=== PATIENT | male | born 1965 | race Caucasian/White ===

== ENCOUNTER 2021-10-16 10:22 | Emergency (ER) | payer OTHER, SELFPAY ==
[2021-10-16] VITALS (16 sets, daily range): BP systolic 121–156; BP diastolic 70–87; PULSE 60–78; RESP 12–24; TEMP 36.3; O2SAT 93–98
--- NOTE | 2021-10-16 10:31 | ECG_ITS ---
Measurements Intervals [place] Rate: 71 P: 57 AL: 165 QRS: 46 QRSD: 101 T: 30 QT: 409 QTc: 447 Interpretive Statements SINUS RHYTHM NORMAL ECG Electronically Signed On 10-16-2021 11:54:36 CDT by Jacob Godfrey D.O.
--- NOTE | 2021-10-16 10:50 | PC.NURSE ---
Pt states that he went to the bathroom but forgot to pee in the cup
[2021-10-16 10:56] LABS: Basophils Percent Auto 0.4 % (0.2-1.2); Eosinophils Absolute Auto 0.1 K/mm3 (0-0.3); Eosinophils Percent Auto 0.9 % (0-4.4); Hematocrit 46.8 % (42.0-52.0); Immature Granulocyte Absolute 0.03 K/mm3 (0.00-0.031); Immature Granulocyte Percent A 0.3 % (0-0.5); Lymphocytes Absolute Auto 2.29 K/mm3 (0.9-3.2); Lymphocytes Percent Auto 24.4 % (18.3-44.2); Mean Corpuscular HGB Conc 34.2 g/dl (32-36); Mean Corpuscular Hemoglobin 32.6 pg (26-34); Mean Corpuscular Volume 95.3 fl (80-100); Mean Platelet Volume 11.1 fl (7.4-10.4); Monocytes Absolute Auto 0.5 K/mm3 (0.1-0.6); Monocytes Percent Auto 5.4 % (2.6-8.5); Neutrophils Absolute Auto 6.4 K/mm3 (1.3-6.7); Neutrophils Percent Auto 68.6 % (45.5-73.1); Platelet Count Result 205 k/mm3 (150-375); Red Blood Count 4.91 M/mm3 (4.6-6.20); Red Cell Distribution Width 13.2 % (11.5-14.5); White Blood Count 9.4 K/mm3 (4.5-10.0)
[2021-10-16 11:06] LABS: Alanine Aminotransferase 21 U/L (4-50); Albumin Level 4.8 g/dL (3.5-5.1); Alkaline Phosphatase 100 U/L (38-126); Anion Gap 9 mmol/L (8-16); Aspartate Amino Transferase 27 U/L (17-59); Bilirubin,Total 0.9 mg/dL (0.2-1.3); Blood Urea Nitrogen 13 mg/dL (9-20); Calcium 9.2 mg/dL (8.4-10.2); Carbon Dioxide 27 mmol/L (22-30); Chloride 104 mmol/L (98-107); Estimated CRCL calculation 112 ml/min; Estimated Glomerular Filt Rate > 60; Glucose 148 mg/dL (65-110); Magnesium 2.1 mg/dL (1.6-2.3); Potassium 3.7 mmol/L (3.4-5.0); Sodium 140 mmol/L (137-145)
--- NOTE | 2021-10-16 11:30 | ED.GENADULT ---
HPI - General Adult General Chief complaint: Recheck/Abnormal Lab/Rx Stated complaint: blood pressure problems Time Seen by Provider: 10/16/21 10:31 Source: patient and family Mode of arrival: ambulatory Limitations: no limitations History of Present Illness HPI narrative: 56-year-old male presenting to the emergency department for evaluation of not feeling well this morning. Patient states he does have history of high blood pressure and has had elevated blood pressures as of recently. Patient states he recently had his amlodipine/benazepril increased from 10 to 10/30. Patient did contact his primary care physician about his elevated blood pressures are running in the systolic 170s. Patient was told since Tuesday to increase this again so patient has been taking . Patient states this morning when he woke up he had an anxious feeling. Patient denies any chest pain or shortness of with this. Patient did check his blood pressure and was found to be in the systolic 170s. Patient did take his blood pressure medication. Patient states that this uneasy/anxious feeling lasted approximately 1 to 2 hours. Patient states he is at his baseline now and denies any complaints. Patient denies any prior history of carotid artery disease. Patient does have a stress test a few years ago. Patient denies any prior history of Angiocath. Related Data Home Medications Medication Instructions Recorded Confirmed amlodipine-benazepril 2 cap DAILY 10/16/21 atorvastatin 40 mg DAILY 10/16/21 Allergies Allergy/AdvReac Type Severity Reaction Status Date / Time No Known Allergies Allergy Verified 10/16/21 10:36 Review of Systems Review of Systems: CONSTITUTIONAL: See HPI EYES: Denies visual changes, redness, or discharge. ENT: Denies rhinorrhea, congestion, sore throat, or otalgia. CARDIOVASCULAR: See HPI RESPIRATORY: Denies cough or dyspnea. GASTROINTESTINAL: Denies abdominal pain, nausea, vomiting, or diarrhea. GENITOURINARY: Denies dysuria or hematuria. SKIN: Denies rash or itching. MUSCULOSKELETAL: Denies back pain, joint pain, or myalgia. NEUROLOGIC: Denies headache, numbness, or weakness. [facility] Family History Family History (Updated 01/09/16 @ 23:21 by DOCTOR UNKNOWN) Mother Patient's mother is in good health Family history of pulmonary embolism Father Patient's father is in good health Social History Social History Smoking status: Heavy tobacco smoker Alcohol intake: never Exam Narrative: APPEARANCE: Well appearing, no pain, no distress, well-nourished. HEAD: normocephalic, atraumatic. EYES: PERRLA/EOMI, conjunctivae clear. NOSE: Normal no drainage THROAT: Pharynx clear, no exudate. NECK: Supple. No adenopathy, no masses. RESPIRATORY: Airway patent, respirations nonlabored. Clear to auscultation bilaterally, no rales, rhonchi, wheezing. CARDIOVASCULAR: Regular rate and rhythm without murmurs rubs or gallops. ABDOMINAL: Soft, nontender, nondistended, normal bowel sounds MUSCULOSKELETAL: Moves all extremities. Strength/ROM intact, No edema, No calf tenderness. NEURO: Alert. Cranial nerves II through XII intact. Good gait. Good coordination SKIN: Warm, dry. Normal Color Course Course Emergency Course: Patient's serial troponins were negative. Patient did feel well with ambulation. Patient's blood pressure is range between 160s and 130 systolic. When patient ambulated he had no worsening symptoms. Patient was encouraged to have close follow-up with his primary care physician. Vital Signs Vital signs: Vital Signs Temperature 97.3 F L 10/16/21 10:23 Pulse Rate 78 10/16/21 10:23 Respiratory Rate 16 10/16/21 10:23 Blood Pressure 156/76 H 10/16/21 10:23 Pulse Oximetry 98 10/16/21 10:23 Temperature 97.3 F L 10/16/21 10:23 Pulse Rate 62 10/16/21 15:27 Respiratory Rate 18 10/16/21 15:27 Blood Pressure 145/73 H 10/16/21 15:27 Pulse Oximetry 97 10/16/21 15:27 [facility]
[2021-10-16 11:32] LABS: Appearance Urine Clear (Clear); Bilirubin Urine Negative (Negative); Blood Urine Negative (Negative); Color Urine Yellow (Yellow); Glucose Urine UA Negative (Negative); Ketones Urine Negative (Negative); Leukocyte Esterase Ur Negative LEU/UL (Negative); Nitrate Urine Negative (Negative); Protein Urine Negative (Negative); Urobilinogen Urine 0.2 mg/dL (<2.0); pH Urine 6.5 (5.0-9.0)
[2021-10-16 11:35] LABS: RBC Urine 0-2 /hpf (0-2); Squamous Epithelial Cell Urine Rare /hpf (Few); WBC Urine 0-3 /hpf
[2021-10-16 11:41] LABS: Add Urine Microscopic? YES
[2021-10-16 12:07] LABS: Thyroid Stimulating Hormone Reflex 0.633 uIU/mL (0.465-4.68)
--- NOTE | 2021-10-16 12:13 | PC.NURSE ---
Talked to daniel in lab to add trop
[2021-10-16 12:33] LABS: Troponin I < 0.012 ng/mL (0.000-0.034)
[2021-10-16 14:40] LABS: Troponin I < 0.012 ng/mL (0.000-0.034)
== END 2021-10-16 15:28 | disposition home or self-care (01) ==
PROVIDERS: Emergency Provider Emergency Medicine; PCP Physician Assistant
DX: I10 Essential (primary) hypertension (principal); F17.200 Nicotine dependence, unspecified, uncomplicated
CPT/HCPCS: 36415; 80053; 81001; 83735; 84443; 84484; 85025; 93005; 99284

== ENCOUNTER 2024-04-19 09:09 | Emergency (ER) | payer OTHER, SELFPAY ==
[2024-04-19] VITALS (9 sets, daily range): BP systolic 117–136; BP diastolic 68–81; PULSE 66–74; RESP 12–50; TEMP 36.3; O2SAT 91–98
--- NOTE | 2024-04-19 09:51 | ECG_ITS ---
Test Date: 2024-04-19 10:17:29 Measurements Intervals [place] Rate: 63 P: 50 MT: 162 QRS: 31 QRSD: 99 T: 44 QT: 424 QTc: 437 Interpretive Statements SINUS RHYTHM NORMAL ECG No previous ECG available for comparison Electronically Signed On 04-19-2024 10:36:12 [employer] by Jacob Godfrey D.O.
[2024-04-19 10:37] LABS: Basophils Percent Auto 0.2 % (0.2-1.2); Eosinophils Absolute Auto 0.1 K/mm3 (0-0.3); Eosinophils Percent Auto 1.1 % (0-4.4); Hematocrit 47.5 % (42.0-52.0); Hemoglobin 16.4 g/dL (14.0-18.0); Immature Granulocyte Absolute 0.02 K/mm3 (0.00-0.031); Immature Granulocyte Percent A 0.2 % (0-0.5); Lymphocytes Percent Auto 20.3 % (18.3-44.2); Mean Corpuscular HGB Conc 34.5 g/dl (32-36); Mean Corpuscular Hemoglobin 31.8 pg (26-34); Mean Corpuscular Volume 92.2 fl (80-100); Mean Platelet Volume 10.9 fl (7.4-10.4); Monocytes Absolute Auto 0.4 K/mm3 (0.1-0.6); Monocytes Percent Auto 5.1 % (2.6-8.5); Neutrophils Absolute Auto 6.1 K/mm3 (1.3-6.7); Neutrophils Percent Auto 73.1 % (45.5-73.1); Platelet Count Result 154 k/mm3 (150-375); Red Blood Count 5.15 M/mm3 (4.6-6.20); Red Cell Distribution Width 13.1 % (11.5-14.5); White Blood Count 8.4 K/mm3 (4.5-10.0)
[2024-04-19 10:47] LABS: Anion Gap 9 mmol/L (4-12); Blood Urea Nitrogen 16 mg/dL (9-20); Calcium 9.3 mg/dL (8.4-10.2); Carbon Dioxide 25 mmol/L (22-30); Chloride 104 mmol/L (98-107); Estimated CRCL calculation 100 ml/min; Estimated Glomerular Filt Rate > 60; Glucose 97 mg/dL (65-110); Potassium 3.9 mmol/L (3.4-5.0); Sodium 138 mmol/L (137-145)
--- NOTE | 2024-04-19 17:39 | ED.RECABL ---
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 No chest pain, shortness of breath, however sometimes when he thinks about certain tasks he gets a sensation of pressure to his head he Related Data Home Medications Medication Instructions Recorded Confirmed amlodipine 5 mg-benazepril 20 mg 2 cap DAILY 10/16/21 capsule atorvastatin 40 mg tablet 40 mg DAILY 10/16/21 Allergies Allergy/AdvReac Type Severity Reaction Status Date / Time No Known Allergies Allergy Verified 04/19/24 09:20 Review of Systems Review of Systems: All systems reviewed & are unremarkable except as noted in HPI and below [facility] Family History Family History (Updated 01/09/16 @ 23:21 by DOCTOR UNKNOWN) Mother Patient's mother is in good health Family history of pulmonary embolism Father Patient's father is in good health Social History Social History Smoking status: Heavy tobacco smoker Alcohol intake: never Exam Narrative: EXAMINATION OF ORGAN SYSTEMS/BODY AREAS: Constitutional: Vital signs per nursing GENERAL:[No acute distress, non-toxic appearing.] HEAD: Normal with no signs of head trauma. EYES: EOMI, conjunctiva normal ENT: Hearing grossly intact LUNGS: Nonlabored breathing. HEART: [Regular rate and rhythm] ABD: [Soft], [nontender to palpation] EXT: Normal range of motion SKIN: [No rashes or lesions.] NEURO: [Alert and oriented x 3. No gross focal sensory or strength deficits.] PSYCH: Normal affect Course Vital Signs Vital signs: Vital Signs Respiratory Rate 50 H 04/19/24 09:15 Blood Pressure 136/77 04/19/24 09:15 Pulse Oximetry 94 04/19/24 09:15 Temperature 97.4 F L 04/19/24 09:16 Pulse Rate 66 04/19/24 09:46 Respiratory Rate 15 04/19/24 10:01 Blood Pressure 123/68 04/19/24 10:15 Pulse Oximetry 91 04/19/24 10:15 Oxygen Delivery Room Air 04/19/24 09:16 MDM - Recheck/Abnormal Lab/Rx MDM Narrative Medical decision making narrative: Patient presents here unsure he is feeling stressed out or if his blood pressure is high, his blood pressure has been completely normal here, he he is very well-appearing, denies any symptoms currently, basic workup obtained including EKG are unremarkable. independent interpretation EKG by myself, shows EKG rate 63, normal [place], QRS, QTC, axis, no ST elevations or depressions no acute ischemia or arrhythmia Patient denies any thoughts about wanting to hurt himself or anyone else. I will given follow-up to mental health resources and several p.r.n. doses of Ativan for when he has the episodes again, I have encouraged him to always return to the ER for any further issues and he is agreeable to this. Lab Data 04/19/24 10:32 04/19/24 10:32 Labs: Lab Results 04/19/24 Range/Units 10:32 WBC 8.4 (4.5-10.0) K/mm3 RBC 5.15 (4.6-6.20) M/mm3 Hgb 16.4 (14.0-18.0) g/dL Hct 47.5 (42.0-52.0) % MCV 92.2 (80-100) fl MCH 31.8 (26-34) pg MCHC 34.5 (32-36) g/dl RDW 13.1 (11.5-14.5) % Plt Count 154 (150-375) k/mm3 MPV 10.9 H (7.4-10.4) fl Immature Gran % (Auto) 0.2 (0-0.5) % Neut % (Auto) 73.1 (45.5-73.1) % Lymph % (Auto) 20.3 (18.3-44.2) % [place] % (Auto) 5.1 (2.6-8.5) % Eos % (Auto) 1.1 (0-4.4) % Baso % (Auto) 0.2 (0.2-1.2) % Lymph # (Auto) 1.70 (0.9-3.2) K/mm3 [place] # (Auto) 0.4 (0.1-0.6) K/mm3 Eos # (Auto) 0.1 (0-0.3) K/mm3 Baso # (Auto) 0.0 (0.0-0.1) K/mm3 Abs Immat Gran (auto) 0.02 (0.00-0.031) K/mm3 Absolute Neuts (auto) 6.1 (1.3-6.7) K/mm3 Absolute Nucleated RBC 0.000 (0.0-0.012) K/mm3 Nucleated RBC % 0.0 (0.0-0.2) % Sodium 138 (137-145) mmol/L Potassium 3.9 (3.4-5.0) mmol/L Chloride 104 (98-107) mmol/L Carbon Dioxide 25 (22-30) mmol/L Anion Gap 9 (4-12) mmol/L BUN 16 (9-20) mg/dL Creatinine 0.90 (0.7-1.3) mg/dL Estim Creat Clear Calc 100 ml/min Estimated GFR > 60 (59 - ) Glucose 97 (65-110) mg/dL Calcium 9.3 (8.4-10.2) mg/dL Discharge Plan Discharge Clinical Impression: Stress Patient Disposition: Home, Self-Care Condition: Stable Instructions: Stress (ED), Normal Exam (ED) Additional Instructions: Please follow up with your doctor; you can always return for any further issues, especially if you have thoughts about hurting yourself or anyone else, or free start having any chest pain or anything else concerning. Prescriptions: New lorazepam [Ativan] 0.5 mg tablet 0.5 mg PO BID PRN (Reason: anxiety) Qty: 7 0RF No Action atorvastatin 40 mg tablet 40 mg DAILY amlodipine-benazepril 5-20 mg capsule 2 cap DAILY Follow-up/Referrals: 2 Minutes [Outside] - 2 Days UNKNOWN,DOCTOR [Primary Care Provider] -
== END 2024-04-19 11:08 | disposition home or self-care (01) ==
PROVIDERS: Emergency Provider Emergency Medicine
DX: F43.9 Reaction to severe stress, unspecified (principal); I10 Essential (primary) hypertension; Z79.899 Other long term (current) drug therapy
CPT/HCPCS: 36415; 80048; 85025; 93005; 99283

== ENCOUNTER 2024-10-09 08:41 | Emergency (ER) | payer OTHER, SELFPAY ==
[2024-10-09] VITALS (8 sets, daily range): BP systolic 107–133; BP diastolic 67–77; PULSE 64–85; RESP 16–19; TEMP 36.5; O2SAT 93–97
--- NOTE | ~2024-10-09 | XR_ITS ---
XR chest 2V Ordering provider: Rashaun Landa History: 59 years Male with . dizziness . Comparison: July 30, 2014 FINDINGS: MEDIASTINUM: The cardiac silhouette is slightly enlarged. LUNGS: No infiltrates, effusions or pneumothorax. OTHER: No free air under the diaphragm. IMPRESSION: No acute cardiopulmonary pathology. Reviewed, dictated and finalized at location A.
--- NOTE | ~2024-10-09 | CT_ITS ---
EXAMINATION: CTA chest PE protocol DATE: 10/09/2024 10:55 INDICATION: Lightheadedness, hypoxia and elevated d-dimer. TECHNIQUE: Computed tomography (CT) pulmonary angiogram of the chest was performed with 100 mL Omnipa que-350 intravenous contrast. Additional 3D reconstructions utilizing coronal maximum intensity proje ction (MIP) were performed. Automated exposure control and iterative reconstruction technique were em ployed. The dose-length product was 738.34 mGy-cm. COMPARISON: None FINDINGS: No pulmonary embolism. Mild emphysema. Mild dependent atelectasis in the bilateral upper and lower lo bes. No pneumonia, pulmonary edema or pleural effusion. Heart size is normal. Atherosclerotic coronar y artery calcium location. No pericardial effusion. Thoracic aorta is normal in caliber with no disse ction. No pathologically enlarged thoracic lymphadenopathy. Small sliding-type hiatal hernia. Visuali zed upper abdomen is otherwise unremarkable. Mild thoracic spondylosis. IMPRESSION: 1. No pulmonary embolism or other acute cardiopulmonary disease. 2. Mild emphysema. 3. Small sliding-type hiatal hernia. Reviewed, dictated and finalized at location B.
--- NOTE | 2024-10-09 08:46 | ECG_ITS ---
Test Date: 2024-10-09 08:48:23 Measurements Intervals [place] Rate: 74 P: 65 [place]: 170 QRS: 52 QRSD: 90 T: 50 QT: 396 QTc: 440 Interpretive Statements SINUS RHYTHM POSSIBLE LEFT ATRIAL ENLARGEMENT BORDERLINE ECG Compared to ECG 04/19/2024 10:17:29 No significant changes Electronically Signed On 10-09-2024 08:50:00 CDT by Jacob Godfrey D.O.
[2024-10-09 08:58] LABS: Basophils Percent Auto 0.3 % (0.2-1.2); Eosinophils Absolute Auto 0.2 K/mm3 (0-0.3); Eosinophils Percent Auto 1.7 % (0-4.4); Hematocrit 49.1 % (42.0-52.0); Hemoglobin 16.4 g/dL (14.0-18.0); Immature Granulocyte Absolute 0.03 K/mm3 (0.00-0.031); Immature Granulocyte Percent A 0.3 % (0-0.5); Lymphocytes Absolute Auto 2.53 K/mm3 (0.9-3.2); Lymphocytes Percent Auto 24.8 % (18.3-44.2); Mean Corpuscular HGB Conc 33.4 g/dl (32-36); Mean Corpuscular Volume 95.9 fl (80-100); Mean Platelet Volume 10.7 fl (7.4-10.4); Monocytes Absolute Auto 0.5 K/mm3 (0.1-0.6); Monocytes Percent Auto 5.1 % (2.6-8.5); Neutrophils Absolute Auto 6.9 K/mm3 (1.3-6.7); Neutrophils Percent Auto 67.8 % (45.5-73.1); Platelet Count Result 173 k/mm3 (150-375); Red Blood Count 5.12 M/mm3 (4.6-6.20); White Blood Count 10.2 K/mm3 (4.5-10.0)
--- OUTSIDE RECORDS SUMMARY | 2024-10-09 09:03 | XMS_ITS | Encounter Summary ---
Author Organization [facility] Address [address] [place] [address] Care Team Providers Care Basket Hand Braider Name Role Phone SeverianoFracisco nugentsalma DUPREE Primary Care Provider UnaRomulo Glvoer MD Unavailable [phone] Shilpa Savage NP Primary Care Provider UnavaNatasha Coleman Primary Care Provider [phone] New Referring, Provider Primary Care Provider Un available Natasha Arreola Primary Care Provider [phone] Dianna Blackman NP Primary Care Provider [phone] Kaden Lord NP Primary Care Provide r Tian Taveras MD Primary Care Provider [phone] Encounter Details Date Type Department Care Team (Late st Contact Info) Description 08/26/2017 Abstract [facility] at [address] [address] Nga Cruz MA Social History Tobacco Use Types Packs/Day Years Used Date Smoking Tobacco: Every Day Cigarettes 1 36.3 Started: 1988 Alcohol Use Standard Drinks/Week Comments No 0 (1 standard drink = 0.6 oz pur e alcohol) Sex and Gender Information Value Date Recorded Sex Assigned at Male 08/06/2024 3:05 PM CLIENT SUCCESS SPECIALIST Legal Sex Male 3:29 PM CLIENT SUCCESS SPECIALIST Gender Identity Male 08/06/2024 3:05 PM CLIENT SUCCESS SPECIALIST Sexual Orientation Straight 08/06/2024 3: 05 PM CLIENT SUCCESS SPECIALIST 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 Not on file documented as of this encounter Plan of Treatment Not on file documented as of this encounter Procedures Procedure Name Priority Date/Time Associated Diagnosis Comments CBC (OUTSIDE LAB) Routine 06/09/2017 PROSTATE SPECIFIC ANTIGEN,TOTAL Routine 06/09/2017 COMPREHENSIVE METABOLIC PANEL Routine 06/09/2017 LIPID PANEL Routine 06/09/2017 THYROID STIM HORMONE TSH Routine 06/09/2017 documented in this encounter Results * PROSTATE SPECIFIC ANTIGEN,TOTAL (06/09/2017) PSA 0.220 06/09/2017 us Doc [facility]ORATORY Final Result * THYROID STIM HORMONE, TSH (06/09/2017) TSH 1.21 06/09/2017 us Doc [facility]AT[facility] Final Result * LIPID PANEL (06/09/2017) Pathologist [facility] CHOLESTEROL 236 HDL 38 TRIGLYCERIDES 140 LDL (CALCULATED) 170 06/09/2017 us Doc [facility] Final Result * COMPREHENSIVE METABOLIC PANEL (06/09/2017) SODIUM S/P/B 138 POTASSIUM S/P/B 4.8 CO2 27 CHLORIDE S/P/B 101 GLUCOSE 91 mg/dL CALCIUM S/P/B 9.4 BUN 15 CREATININE S/P/B 1.03 0.7 - 1.3 EGFR NON-AFR. AMER. >60 <=90 ALKALINE PHOSPHATASE S/P/B 97 ALT 41 AST 37 BILIRUBIN TOTAL S/P/B 0.5 ALBUMIN S/P/B 4.4 3.5 - 5.0 TOTAL PROTEIN S/P/B 7.5 06/09/2017 us Doc [facility] Abstract LABORATORY Final Result * CBC (OUTSIDE LAB) (06/09/2017) WBC 9.0 HGB 15.9 HCT 48.2 PLT 205 06/09/2017 us Doc [facility] Abstract LAB-OUTSIDE/ABSTRACTED Final Result documented in this encounter Visit Diagnoses Not on filedocumented in this encounter Care Teams Basket Hand Braider Relationship Specialty Start Date End Date Moriah العلي APNP PCP - General ACCOUNT CONTACT ASSOCIATE 08/11/17 06/28/18 Shilpa Savage NP [address] [address] PCP - General Nurse Practitioner Family 06/29/18 07/25/19 [place] [address] [place] [address] PCP - General PHYSICIAN LOSS PREVENTION DETECTIVE 07/26/19 09/30/19 [facility] Provider [address] [place] [address] PCP - General UNKNOWN PHYSICIAN SPECIALTY 10/01/19 10/29/19 [place] [address] [place] [address] PCP - General PHYSICIAN LOSS PREVENTION DETECTIVE 10/30/19 12/08/22 [place] [address] [facility], [address] [address] PCP - General Nurse Practitioner Family 12/09/22 08/22/23 Kaden Lord, [place] [address] [address], [address] [place] [address] PCP - General NURSE PRACTITIONER ADULT HEALTH 08/23/23 01/03/24 [place] [id number] [address] PCP - General INTERNAL MEDICINE 01/04/24 Romulo Wynn MD [facility]. [address] [address] [place] [employer] CARDIOVASCULAR DISEASE 08/19/17 documented as of this encounter
--- OUTSIDE RECORDS SUMMARY | 2024-10-09 09:03 | XMS_ITS | Encounter Summary ---
Author Organization [facility] Address [address] [place] [address] Care Team Providers Care Housing Specialist Name Role Phone Romulo Wynn MD Unavailable [phone] Dianna Blackman NP Primary Care Provider [phone] Kaden Lord NP Primary Care Provide r Tian Taveras MD Primary Care Provider [phone] Encounter Details Date Type Department Care Team (Late st Contact Info) Description 08/22/2023 [employer] Message Enc [facility] Family & Internal Medicine [address] [address] [facility] Provider appointment Social History Tobacco Use Types Packs/Day Years Used Date Smoking Tobacco: Every Day Cigarettes 0.5 36.3 Started: 1988 Smokeless Tobacco: Never Comments:advised to stop Alcohol Use Standard Drinks/Week Comments No 0 (1 standard drink = 0.6 oz pur e alcohol) PHQ-2 Answer Date Recorded Patient Health Questionnaire-2 Score 0 08/22/2023 Sex and Gender Information Value Date Recorded Sex Assigned at Male 08/06/2024 3:05 PM LEARNING AND DEVELOPMENT SPECIALIST Legal Sex Male 3:29 PM LEARNING AND DEVELOPMENT SPECIALIST Gender Identity Male 08/06/2024 3:05 PM LEARNING AND DEVELOPMENT SPECIALIST Sexual Orientation Straight 08/06/2024 3: 05 PM LEARNING AND DEVELOPMENT SPECIALIST 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 Question Answer Date of Assessment Author Status Little interest or pleasure in doing things Not at all 08/22/2023 11:48 AM CDT Bre Elizabeth MA Acti ve Feeling down, depressed, or hopeless Not at all 08/22/2023 11:48 AM CDT Bre Elizabeth MA Active Patient Health Questionnaire-2 Score 0 08/22/2023 11:48 AM CDT Bre Elizabeth M A Active * If you checked off any problems on this questionnaire so far, Question Answer Date of Assessment Author Status How difficult have these problems made it for you to do your work, take care of things at home, or get along with other people? Not difficult at all 08/22/2023 11:48 AM CDT Bre Elizabeth MA Active documented as of this encounter Plan of Treatment Not on file documented as of this encounter Visit Diagnoses Not on filedocumented in this encounter Additional Health Concerns Assessment Noted Time PHQ-9 Depression Total Score: 0 03/31/20 22 3:17 PM CDT documented as of this encounter Care Teams Housing Specialist Relationship Specialty Start [place] [address] [address], [address] [place] [address] PCP - General Nurse Practitioner Family 12/09/22 08/22/23 [place] [address] [address], [address] [place] [address] PCP - General NURSE PRACTITIONER ADULT HEALTH 08/23/23 01/03/24 [place] [address] [address] [place] [address] PCP - General INTERNAL MEDICINE 01/04/24 Romulo Wynn MD [address] [address] [employer] Processing Technician CARDIOVASCULAR DISEASE 08/19/17 documented as of this encounter
--- OUTSIDE RECORDS SUMMARY | 2024-10-09 09:03 | XMS_ITS | Clinical Summary ---
Author Organization [facility] Address [facility] [place] [address] Care Team Providers Care Automobile Parker Name Role Phone Romulo Wynn MD Unavailable [phone] Tian Taveras MD Primary Care Provider [phone] Allergies No known active allergies Medications amLODIPine-benaze pril (LOTREL) 5-20 MG capsuleIndication s:Primary hypertension Take 2 capsules by mouth daily. 180 capsule 1 08/06/19 25 Active atorvastatin (LIPITOR) 40 MG tabletIndications :Other hyperlipidemia Take 1 tablet (40 mg total) by mouth daily. 90 tablet 08/06/19 25 Active hydroCHLOROthiazi de (HYDRODIURIL) 25 MG tabletIndications :Primary hypertension Take 1 tablet (25 mg total) by mouth every morning. 30 tablet 1 08/06/19 25 Active hydrOXYzine (ATARAX) 25 MG tabletIndications :Anxiety Take 1 tablet (25 mg total) by mouth daily as needed. 90 tablet 1 08/06/19 25 Active gabapentin (NEURONTIN) 300 MG capsuleIndication s:Foot pain, right Take 1 capsule (300 mg total) by mouth nightly at bedtime. 30 capsule 08/06/19 25 Active DULoxetine (CYMBALTA) 30 MG capsuleIndication s:Anxiety associated with depression Take 2 capsules (60 mg total) by mouth daily. 120 capsule 10/06/19 25 Active LORazepam (ATIVAN) 0.5 MG tabletIndications :Anxiety associated with depression Take 1 tablet (0.5 mg total) by mouth daily as needed for Anxiety. 15 tablet 10/06/19 25 Active DULoxetine (CYMBALTA) 30 MG capsuleIndication s:Anxiety associated with depression Take 1 capsule (30 mg total) by mouth daily. 90 capsule 08/06/19 25 025 Discontinued(R eorder) DULoxetine (CYMBALTA) 30 MG capsuleIndication s:Anxiety associated with depression Take 2 capsules (60 mg total) by mouth daily. 90 capsule 10/06/19 25 025 Discontinued Active Problems Problem Noted Date Diagnosed Date Anxiety 08/06/2024 Tobacco use 08/06/2024 CRIS on CPAP 07/31/2024 Prediabetes 01/20/2023 Anxiety associated with depression 01/12/2023 Acute gout involving toe of left foot, unspecifi ed cause 09/23/2021 Bruit of left carotid artery 10/01/2020 Labral tear of shoulder, degenerative, right Diverticulosis 05/03/2019 Adenomatous polyp of descending colon 05/03/2019 Chronic right shoulder pain 04/23/2019 Impingement syndrome of shoulder, right 04/23/20 Osteoarthritis of glenohumeral joint, right 04/13 Nicotine dependence 05/31/2017 BMI 38.0-38.9,adult 05/31/2017 Essential hypertension Hyperlipidemia Resolved Problems Problem Noted Date Diagnosed Date Resolved Date Change in bowel habit 05/20/20222022 Overview (05/20/2022): Added automatically from request for surgery [id number] Diarrhea, unspecified type 05/20/2022 0 01/12/2023 Overview (05/20/2022): Added automatically from request for surgery [id number] Left ear pain 09/23/2021 01/12/2023 Encounter for screening for malignant neoplasm of colon 03/26/2019 01/12/2023 Overview (03/26/2019): Added automatically from request for surgery [id number] BMI 40.0-44.9, adult 12/06/2018 023 Acute recurrent maxillary sinusitis 12/06/2018 01/12/2023 Screening for colon cancer 04/04/2018 0 06/30/2018 Neck pain, acute 11/15/2017 06/30/2018 Snoring 08/09/2017 06/30/2018 Acute bronchitis, unspecified organism 05/31/2017 06/30/2018 Chest discomfort 06/30/2018 Encounters Date Type Department Care Team Description 10/03/2024 Telephone [facility] [address] [place] [address] Tian Taveras MD Medication Request 08/06/2024 3:00 PM VICE PRESIDENT CLIENT SERVICES Office Visit [facility] [address] [place] [address] Tian Taveras MD Hypertension (3 month follow up hypertension / medication) 08/06/2024 Travel from Last 3 Months Immunizations Immunization Administration Dates Next Due FLUCELVAX (ccIIV3, TRIVALENT, 0.5mL) 05/01/2024 Flucelvax 2 YRS+ (Multi-Dose Vial) 03/24/2019 Fluzone 6 Months+ Quad (0.5 mL Prefilled Syringe) 03/15/2020 Influenza (Generic) 03/15/2020,04/04/2018 Influenza Adult (Generic) 03/24/2022,06/2020,04/04/2018,2015,04/18/2015 PFIZER COVID-19 (ORIGINAL FORMULATION, PURPLE CAP) mRNA, LNP-S, PF, 30 MCG/0.3 ML DOSE 04/20/2021,09/27/2020,09/06/2020 Pneumococcal (Prevnar 20) 01/12/2023 Tdap (Adacel) 01/12/2023 Family History Medical History Relation Comments Hypertension Brother 1 WPW Brother 1 Hypertension Brother 2 No Known Problems Daughter Transient ischemic attack Father No Known Problems Maternal Aunt No Known Problems Maternal Grandfather No Known Problems Maternal Grandmother No Known Problems Maternal Uncle Alzheimer's Disease Mother No Known Problems Other No Known Problems Paternal Aunt No Known Problems Paternal Grandfather No Known Problems Paternal Grandmother No Known Problems Paternal Uncle No Known Problems Sister 1 No Known Problems Sister 2 No Known Problems Son Relation Status Comments Brother 1 Alive Brother 2 Alive Daughter Father Alive Maternal Aunt Maternal Grandfather (Age 78) Maternal Grandmother (Age 72) Maternal Uncle Mother Alive Other Paternal Aunt Paternal Grandfather (Age 72) Paternal Grandmother (Age 78) Paternal Uncle Sister 1 Alive Sister 2 Alive Son Social History Tobacco Use Types Packs/Day Years Used Date Smoking Tobacco: Every Day Cigarettes 0.5 36.3 Started: 1988 Smokeless Tobacco: Never Tobacco Cessation:Ready to Q uit: No; Counseling Given: Yes Comments:advised to stop Alcohol Use Standard Drinks/Week Comments No 0 (1 standard drink = 0.6 oz pur e alcohol) PHQ-2 Answer Date Recorded Patient Health Questionnaire-2 Score 0 08/06/2024 Sex and Gender Information Value Date Recorded Sex Assigned at Male 08/06/2024 3:05 PM VICE PRESIDENT CLIENT SERVICES Legal Sex Male 3:29 PM VICE PRESIDENT CLIENT SERVICES Gender Identity Male 08/06/2024 3:05 PM VICE PRESIDENT CLIENT SERVICES Sexual Orientation Straight 08/06/2024 3: 05 PM VICE PRESIDENT CLIENT SERVICES 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 Not on file Last Filed Vital Signs Vital Sign Reading Time Taken Comments Blood Pressure 132/82 08/06/2024 2:59 PM VICE PRESIDENT CLIENT SERVICES Pulse 74 08/06/2024 2:59 PM VICE PRESIDENT CLIENT SERVICES Temperature 36.6 C (97.9 F) 08/06/2024 2:59 PM VICE PRESIDENT CLIENT SERVICES Respiratory Rate 16 08/06/2024 2:59 PM VICE PRESIDENT CLIENT SERVICES Oxygen Saturation 97% 08/06/2024 2:59 PM VICE PRESIDENT CLIENT SERVICES Inhaled Oxygen Concentration - - Weight 117 kg (258 lb) 08/06/2024 2:59 PM VICE PRESIDENT CLIENT SERVICES Height 180.3 cm (5' 11 ) 08/06/2024 2:59 PM VICE PRESIDENT CLIENT SERVICES Body Mass Index 35.98 08/06/2024 2:59 PM VICE PRESIDENT CLIENT SERVICES Plan of Treatment Health Maintenance Due Date Last Done Comments Zoster Vaccines (1 of 2) 2015 Annual Physical 01/13/2024 01/12/2023 Colorectal Cancer Screening Colonoscopy (10 Years) 08/06/2032 08/06/2022, 04/18/2019 DTaP, Tdap and Td Vaccines (2 - Td or Tdap) 01/12/2033 01/12/2023 Hepatitis C 01/12/2053 Postponed from 1983 (Patient Refused) Pneumococcal Vaccine: 50+ Years Completed 01/12/2023 COVID-19 Vaccine Completed 05/01/2024, 05/2022, 04/20/2021, Additional history exists PHQ-2 (Physician [place]) Completed 08/06/2024 Meningococcal B Vaccine Aged Out No l onger eligible based on patient's age to complete this topic Meningococcal Vaccine Aged Out No cr eugenio eligible based on patient's age to complete this topic RSV Immunizations Under 20 Months Aged Out No longer eligible based on patient's age to complete [place] [address] [employer] Care Teams Automobile Parker Relationship Specialty [place] [address] [address] PCP - General INTERNAL MEDICINE 01/04/24 Romulo Wynn MD [facility]. [address] [place] [address] [place] Bulk Sugar Handler CARDIOVASCULAR DISEASE 08/19/17
--- OUTSIDE RECORDS SUMMARY | 2024-10-09 09:03 | XMS_ITS | Clinical Summary ---
Author Organization [facility] Address [address] [address] Care Team Providers Care Family Program Specialist Name Role Phone Unavailable Primary Care Provider Unavailabl e Source Comments [facility],non-owned Affiliates and Associated Physician Practices is amultiple site organization consisting of ambulatory clinics and hospital sitesin [place], [place], [place] and [place]. This disclosure is being madepursuant to the Care Everywhere program and may not contain all information available regarding this patient. Last updated 18.[facility] Allergies No known active allergies Medications * Be aware that medications may not be up to date on this document. Alwaysverify current medications with the patient. AMLODIPINE BESYLATE PO Active albuterol HFA (PROVENTIL;CELE FIORELLA;PROAIR) 108 (90 BASE) MCG/ACT inhalerIndicatio ns:Acute bronchitis, unspecified organism Inhale 2 puffs by mouth every 6 hours as needed 1 Inhaler 04/20/2017 Active Active Problems No known active problems Social History Tobacco Use Types Packs/Day Years Used Date Smoking Tobacco: Every Day Cigarettes 1 30 Smokeless Tobacco: Never Sex and Gender Information Value Date Recorded Sex Assigned at Not on file Legal Sex Male 11:43 AM INVESTIGATOR FRAUD Gender Identity Not on file Sexual Orientation Not on file Last Filed Vital Signs Vital Sign Reading Time Taken Comments Blood Pressure 136/88 04/20/2017 2:09 PM INVESTIGATOR FRAUD Pulse 85 04/20/2017 2:09 PM INVESTIGATOR FRAUD Temperature 36.9 C (98.4 F) 04/20/2017 2:09 PM INVESTIGATOR FRAUD Respiratory Rate 16 04/20/2017 2:09 PM INVESTIGATOR FRAUD Oxygen Saturation 97% 04/20/2017 2:09 PM INVESTIGATOR FRAUD Inhaled Oxygen Concentration - - Weight 131.5 kg (290 lb) 04/20/2017 2:09 PM INVESTIGATOR FRAUD Height 182.9 cm (6') 04/20/2017 2:09 PM INVESTIGATOR FRAUD Body Mass Index 39.33 04/20/2017 2:09 PM INVESTIGATOR FRAUD Plan of Treatment Health Maintenance Due Date Last Done Comments COLOGUARD (AGES 45-75) - COL ON CA SCREENING 1965 COLON MONITORING 1965 COLONOSCOPY - COLON CA SCREENING 1965 CT COLONOGRAPHY - COLON CA SCREENING 1965 Colorectal Cancer Screening 1965 FIT - COLON CA SCREENING 1965 FLEX SIG - COLON CA SCREENING 1965 LIPID TESTING 1965 HIV SCREENING 1980 HEPATITIS C SCREENING 05/26/1983 DTAP/TDAP/TD VACCINES (1 - Tdap) 1984 HEPATITIS B VACCINE (1 of 3 - 19+ 3-dose series) 1984 PNEUMOCOCCAL VACCINE 50+ (1 of 1 - PCV) 2015 ZOSTER VACCINE (1 of 2) 2015 SCREENING FOR DIABETES 04/20/2017 COVID-19 VACCINE (1 - 2023-2 5 season) 2024 DEPRESSION SCREENING 06/13/2024 INFLUENZA VACCINE (Season Ended) 2025 HIB VACCINE Aged Out No longer eligi ble based on patient's age to complete this topic HPV VACCINE Aged Out No longer eligi ble based on patient's age to complete this topic MENINGOCOCCAL (Group B) VACC INE SHARED DECISION-MAKING Aged Out No longer eligibl e based on patient's age to complete this topic MENINGOCOCCAL GROUPS A/C/Y/W VACCINE Aged Out No longer eligible b ased on patient's age to complete this topic Insurance [employer]
[2024-10-09 09:09] LABS: Alanine Aminotransferase 21 U/L (6-50); Albumin Level 4.5 g/dL (3.5-5.1); Alkaline Phosphatase 88 U/L (38-126); Anion Gap 6 mmol/L (4-12); Aspartate Amino Transferase 24 U/L (17-59); Blood Urea Nitrogen 16 mg/dL (9-20); Calcium 9.1 mg/dL (8.4-10.2); Carbon Dioxide 30 mmol/L (22-30); Chloride 101 mmol/L (98-107); Estimated CRCL calculation 92 ml/min; Estimated Glomerular Filt Rate > 60; Glucose 116 mg/dL (65-110); Potassium 3.7 mmol/L (3.4-5.0); Sodium 137 mmol/L (137-145)
--- NOTE | 2024-10-09 09:43 | ED_ITS ---
HPI - Dizziness General Chief Complaint: Dizziness Stated Complaint: dizziness Time Seen by Provider: 10/09/24 09:09 Source: patient Mode of arrival: ambulatory Limitations: no limitations History of Present Illness HPI Narrative: This is a 59 year old male that presents to the ER for lightheadedness. Reports ongoing over the last several weeks. Reports worse when standing. Reports he was recently started on Duloxetine as well as Ativan for anxiety. Denies chest pain, shortness of breath. Related Data Home Medications ?Medication ?Instructions ?Recorded ?Confirmed ?Last Taken ?Type amlodipine 5 mg-benazepril 20 mg 2 cap DAILY 10/16/21 Unknown History capsule atorvastatin 40 mg tablet 40 mg DAILY 10/16/21 Unknown History Allergies Allergy/AdvReac Type Severity Reaction Status Date / Time No Known Allergies Allergy Verified 10/09/24 08:49 Review of Systems 2 Review of Systems: CONSTITUTIONAL: Denies fever EYES: Denies visual changes CARDIOVASCULAR: Denies chest pain, or edema. RESPIRATORY: Denies dyspnea. GASTROINTESTINAL: Denies vomiting NEUROLOGIC: Denies numbness, or weakness. PSYCHIATRIC: Reports anxiety All systems reviewed & are unremarkable except as noted in HPI and below PMFSH Past Medical History Medical History (Updated 10/09/24 @ 10:03 by Becky Rodas PA-C) History of sleep apnea Mixed hyperlipidemia Essential (primary) hypertension Family History Family History (Updated 01/09/16 @ 23:21 by DOCTOR UNKNOWN) Mother Patient's mother is in good health Family history of pulmonary embolism Father Patient's father is in good health Social History Social History Smoking status: Heavy tobacco smoker Alcohol intake: never Exam 2 Narrative: GENERAL: Well-appearing, well-nourished, and in no acute distress. HEAD: Normocephalic, atraumatic. EYES: PERRLA and EOMI. ENT: Nares clear, no rhinorrhea or epistaxis. Mucous membranes moist. Oropharynx without tonsillar hypertrophy exudate or other lesions. Bilateral TMs pearly ortiz non-bulging NECK: Supple. No adenopathy or masses. CHEST: Clear to auscultation. No respiratory distress. No wheezes rales or rhonchi HEART: Regular rate and rhythm. No murmur heard. Normal peripheral pulses. EXTREMITIES: Normal range of motion. No edema. SKIN: Warm, dry, no rash. NEURO: No focal deficits. Alert and oriented x3. CN II-XII grossly intact PSYCH: Normal mood and affect Course Course Emergency Course: Patient updated on his workup and agrees with plan of care Vital Signs Vital signs: Vital Signs Temperature 97.7 F 10/09/24 08:46 Pulse Rate 76 10/09/24 08:46 Respiratory Rate 19 10/09/24 08:46 Blood Pressure 133/70 10/09/24 08:46 Pulse Oximetry 96 10/09/24 08:46 Oxygen Delivery Room Air 10/09/24 08:46 Temperature 97.7 F 10/09/24 08:46 Pulse Rate 70 10/09/24 09:00 Respiratory Rate 17 10/09/24 09:00 Blood Pressure 119/72 10/09/24 09:00 Pulse Oximetry 94 10/09/24 09:00 Oxygen Delivery Room Air 10/09/24 08:46 MDM - Dizziness MDM Narrative Medical decision making narrative: Patient presents to the emergency department for lightheadedness. Ongoing over the last couple of weeks. Does endorse recently being started on duloxetine and Ativan for anxiety. Patient initially orthostatic, hydrated with L of IV fluids. Ambulatory in the ED with a steady gait. CBC and metabolic panel without concerning findings. D-dimer was elevated, CTA of the chest obtained for further evaluation. No acute cardiopulmonary abnormality. EKG without concerning changes. Patient updated on his workup and agrees with plan of care. He is to have further follow-up with primary provider. He was given warnings to return to the ER Differential Diagnosis Differential diagnosis: Likely adverse reaction to drug, benign paroxysmal positional vertigo, orthostatic hypotension and other (PE, electrolyte derangement, dehydration) Lab Data Attestation: I reviewed the patient's lab results. 10/09/24 08:51 10/09/24 08:51 Labs: Lab Results 10/09/24 Range/Units 08:51 WBC 10.2 H (4.5-10.0) K/mm3 RBC 5.12 (4.6-6.20) M/mm3 Hgb 16.4 (14.0-18.0) g/dL Hct 49.1 (42.0-52.0) % MCV 95.9 (80-100) fl MCH 32.0 (26-34) pg MCHC 33.4 (32-36) g/dl RDW 13.0 (11.5-14.5) % Plt Count 173 (150-375) k/mm3 MPV 10.7 H (7.4-10.4) fl Immature Gran % (Auto) 0.3 (0-0.5) % Neut % (Auto) 67.8 (45.5-73.1) % Lymph % (Auto) 24.8 (18.3-44.2) % Lake % (Auto) 5.1 (2.6-8.5) % Eos % (Auto) 1.7 (0-4.4) % Baso % (Auto) 0.3 (0.2-1.2) % Lymph # (Auto) 2.53 (0.9-3.2) K/mm3 Lake # (Auto) 0.5 (0.1-0.6) K/mm3 Eos # (Auto) 0.2 (0-0.3) K/mm3 Baso # (Auto) 0.0 (0.0-0.1) K/mm3 Abs Immat Gran (auto) 0.03 (0.00-0.031) K/mm3 Absolute Neuts (auto) 6.9 H (1.3-6.7) K/mm3 Absolute Nucleated RBC 0.000 (0.0-0.012) K/mm3 Nucleated RBC % 0.0 (0.0-0.2) % D-Dimer 0.87 H (<0.48) ug/mL Sodium 137 (137-145) mmol/L Potassium 3.7 (3.4-5.0) mmol/L Chloride 101 (98-107) mmol/L Carbon Dioxide 30 (22-30) mmol/L Anion Gap 6 (4-12) mmol/L BUN 16 (9-20) mg/dL Creatinine 1.00 (0.7-1.3) mg/dL Estim Creat Clear Calc 92 ml/min Estimated GFR > 60 (59 - ) Glucose 116 H (65-110) mg/dL Calcium 9.1 (8.4-10.2) mg/dL Total Bilirubin 1.0 (0.2-1.3) mg/dL AST 24 (17-59) U/L ALT 21 (6-50) U/L Alkaline Phosphatase 88 (38-126) U/L Total Protein 8.0 (6.3-8.2) g/dL Albumin 4.5 (3.5-5.1) g/dL Imaging Data Radiologist's impression: ITS Impressions Chest X-Ray 10/09/24 09:23 IMPRESSION: No acute cardiopulmonary pathology. ITS Impressions Chest X-Ray 10/09/24 09:23 IMPRESSION: No acute cardiopulmonary pathology. Chest CTA 10/09/24 11:07 IMPRESSION: 1. No pulmonary embolism or other acute cardiopulmonary disease. 2. Mild emphysema. 3. Small sliding-type hiatal hernia. ECG Data EKG #1: ECG completion date: 10/09/24 EKG Interpretation: normal rate, sinus rhythm, no ST changes and normal QT Critical Care Time Critical Care Time Critical Care Time: No Discharge Plan Discharge Clinical Impression: Lightheadedness, Orthostatic hypotension Patient Disposition: Home Condition: Improved Instructions: Lightheadedness (ED) Additional Instructions: Return to the emergency department if you experience fever, chest pain, shortness of breath, abdominal pain with nausea and vomiting, weakness, numbness, you pass out, or any other symptoms that are concerning to you. Rest. Remain well hydrated. Stand slowly from seated position Follow up with your primary care doctor Patient Language: Slovak Prescriptions: No Action atorvastatin 40 mg tablet 40 mg DAILY amlodipine-benazepril 5-20 mg capsule 2 cap DAILY lorazepam [Ativan] 0.5 mg tablet 0.5 mg PO BID PRN (Reason: anxiety) Qty: 7 0RF Follow-up/Referrals: UNKNOWN,DOCTOR [Primary Care Provider] -
[2024-10-09] MEDS: SODIUM CHLORIDE 0.9% IV 1,000 ML 999 ML IV CONT (09:47)
--- OUTSIDE RECORDS SUMMARY | 2024-10-09 10:10 | XMS_ITS | Encounter Summary ---
Author Organization [facility] Address [address] [place] [address] Care Team Providers Care Operator Technician Name Role Phone SeverianoFracisco nugentsalma DUPREE Primary Care Provider UnaRomulo Glover MD Unavailable [phone] Shilpa Savage NP Primary Care Provider UnavaNatasha Coleman Primary Care Provider [phone] New Referring, Provider Primary Care Provider Un available Natasha Arreola Primary Care Provider [phone] Dianna Blackman NP Primary Care Provider [phone] Kaden Lord NP Primary Care Provide r Tian Taveras MD Primary Care Provider [phone] Encounter Details Date Type Department Care Team (Late st Contact Info) Description 08/26/2017 Abstract [facility] at [address] [address] Nga Cruz [place] Social History Tobacco Use Types Packs/Day Years Used Date Smoking Tobacco: Every Day Cigarettes 1 36.3 Started: 1988 Alcohol Use Standard Drinks/Week Comments No 0 (1 standard drink = 0.6 oz pur e alcohol) Sex and Gender Information Value Date Recorded Sex Assigned at Male 08/06/2024 3:05 PM SHIELD CLEANER Legal Sex Male 3:29 PM SHIELD CLEANER Gender Identity Male 08/06/2024 3:05 PM SHIELD CLEANER Sexual Orientation Straight 08/06/2024 3: 05 PM SHIELD CLEANER Occupation Industry Job Start Date Job End [...] Final Result * LIPID PANEL (06/09/2017) Pathologist [facility] CHOLESTEROL 236 HDL 38 TRIGLYCERIDES 140 LDL [...] on filedocumented in this encounter Care Teams Operator Technician Relationship Specialty Start Date End Date Moriah العلي APNP PCP - General GREASE REFINING SUPERVISOR 08/11/17 06/28/18 Shilpa Savage NP [address] [address] PCP - General Nurse Practitioner Family 06/29/18 07/25/19 [place] [address] [place] [address] PCP - General PHYSICIAN TIPPLE TENDER 07/26/19 09/30/19 [facility], Provider [address] [place] [address] PCP - General UNKNOWN PHYSICIAN SPECIALTY 10/01/19 10/29/19 [place] [address] [place] [address] PCP - General PHYSICIAN TIPPLE TENDER 10/30/19 12/08/22 [place] [address] [facility] [address] [address] PCP - General Nurse Practitioner Family 12/09/22 08/22/23 Kaden Lord, [place] [address] [address], [address] [place] [address] PCP - General NURSE PRACTITIONER ADULT HEALTH 08/23/23 01/03/24 [place] [address] [address] PCP - General INTERNAL MEDICINE 01/04/24 Romulo Wynn MD [facility]. [address] [address] [place] [employer] Specialist CARDIOVASCULAR DISEASE 08/19/17 documented as of this encounter
--- OUTSIDE RECORDS SUMMARY | 2024-10-09 10:10 | XMS_ITS | Clinical Summary ---
Author Organization [facility] Address [address] [place] [address] Care Team Providers Care Veneer Trimmer Name Role Phone Unavailable Primary Care Provider Unavailabl e Source Comments [facility],non-owned Affiliates and Associated Physician Practices is amultiple site organization consisting of ambulatory clinics and hospital sitesin [place], [place], [place] and [place]. This disclosure is being madepursuant to the Care Everywhere program and may not contain all information available regarding this patient. Last updated 18.[facility] Allergies No known active allergies Medications * [...] on file Legal Sex Male 11:43 AM COMMUNICATION CLERK Gender Identity Not on file Sexual Orientation Not on file Last Filed Vital Signs Vital Sign Reading Time Taken Comments Blood Pressure 136/88 04/20/2017 2:09 PM COMMUNICATION CLERK Pulse 85 04/20/2017 2:09 PM COMMUNICATION CLERK Temperature 36.9 C (98.4 F) 04/20/2017 2:09 PM COMMUNICATION CLERK Respiratory Rate 16 04/20/2017 2:09 PM COMMUNICATION CLERK Oxygen Saturation 97% 04/20/2017 2:09 PM COMMUNICATION CLERK Inhaled Oxygen Concentration - - Weight 131.5 kg (290 lb) 04/20/2017 2:09 PM COMMUNICATION CLERK Height 182.9 cm (6') 04/20/2017 2:09 PM COMMUNICATION CLERK Body Mass Index 39.33 04/20/2017 2:09 PM COMMUNICATION CLERK Plan of Treatment Health Maintenance Due Date [...]
--- OUTSIDE RECORDS SUMMARY | 2024-10-09 10:10 | XMS_ITS | Clinical Summary ---
Author Organization [facility] Address [facility] [place] [address] Care Team Providers Care Retail Department Manager Name Role Phone Romulo Wynn MD Unavailable [phone] Tian Taveras MD Primary Care Provider [phone] Allergies No known active allergies Medications amLODIPine-benaze [...] (05/20/2022): Added automatically from request for surgery [id number] Diarrhea, unspecified type 05/20/2022 0 01/12/2023 Overview (05/20/2022): Added automatically from request for surgery [id number] Left ear pain 09/23/2021 01/12/2023 Encounter for screening for malignant neoplasm of colon 03/26/2019 01/12/2023 Overview (03/26/2019): Added automatically from request for surgery [id number] BMI 40.0-44.9, adult 12/06/2018 023 Acute recurrent maxillary sinusitis 12/06/2018 01/12/2023 Screening for colon cancer 04/04/2018 0 06/30/2018 Neck pain, acute 11/15/2017 06/30/2018 Snoring 08/09/2017 06/30/2018 Acute bronchitis, unspecified organism 05/31/2017 06/30/2018 Chest discomfort 06/30/2018 Encounters Date Type Department Care Team Description 10/03/2024 Telephone [facility] Family [facility] [address] [place] [address] Tian Taveras MD Medication Request 08/06/2024 3:00 PM HAZARDOUS MATERIALS TANKER DRIVER Office Visit [facility] [address] [place] [address] Tian Taveras MD Hypertension (3 [...] Sex Assigned at Male 08/06/2024 3:05 PM HAZARDOUS MATERIALS TANKER DRIVER Legal Sex Male 3:29 PM HAZARDOUS MATERIALS TANKER DRIVER Gender Identity Male 08/06/2024 3:05 PM HAZARDOUS MATERIALS TANKER DRIVER Sexual Orientation Straight 08/06/2024 3: 05 PM HAZARDOUS MATERIALS TANKER DRIVER 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 Not on file Last Filed Vital Signs Vital Sign Reading Time Taken Comments Blood Pressure 132/82 08/06/2024 2:59 PM HAZARDOUS MATERIALS TANKER DRIVER Pulse 74 08/06/2024 2:59 PM HAZARDOUS MATERIALS TANKER DRIVER Temperature 36.6 C (97.9 F) 08/06/2024 2:59 PM HAZARDOUS MATERIALS TANKER DRIVER Respiratory Rate 16 08/06/2024 2:59 PM HAZARDOUS MATERIALS TANKER DRIVER Oxygen Saturation 97% 08/06/2024 2:59 PM HAZARDOUS MATERIALS TANKER DRIVER Inhaled Oxygen Concentration - - Weight 117 kg (258 lb) 08/06/2024 2:59 PM HAZARDOUS MATERIALS TANKER DRIVER Height 180.3 cm (5' 11 ) 08/06/2024 2:59 PM HAZARDOUS MATERIALS TANKER DRIVER Body Mass Index 35.98 08/06/2024 2:59 PM HAZARDOUS MATERIALS TANKER DRIVER Plan of Treatment Health Maintenance Due Date [...] 05/2022, 04/20/2021, Additional history exists PHQ-2 (Physician [place]) Completed 08/06/2024 Meningococcal B Vaccine Aged Out No l onger eligible based on patient's age to complete this topic Meningococcal Vaccine Aged Out No cr eugenio eligible based on patient's age to complete this topic RSV Immunizations Under 20 Months Aged Out No longer eligible based on patient's age [place] [address] UMR Care Teams Retail Department Manager Relationship Specialty [place] [address] [address] PCP - General INTERNAL MEDICINE 01/04/24 Romulo Wynn MD [facility]. [address] [place] [address] [place] Hands Assembler CARDIOVASCULAR DISEASE 08/19/17
--- OUTSIDE RECORDS SUMMARY | 2024-10-09 10:10 | XMS_ITS | Encounter Summary ---
Author Organization [facility] Address [address] [place] [address] Care Team Providers Care Civil Preparedness Coordinator Name Role Phone Romulo Wynn MD Unavailable [phone] Dianna Blackman NP Primary Care Provider [phone] Kaden Lord NP Primary Care Provide r Tian Taveras MD Primary Care Provider [phone] Encounter Details Date Type Department Care Team (Late st Contact Info) Description 08/22/2023 reMail Message Enc [facility] Medical Group Family & Internal Medicine [address] [address] [facility] Provider appointment Social History Tobacco Use Types [...] Sex Assigned at Male 08/06/2024 3:05 PM APPLICATION SYSTEMS ENGINEER Legal Sex Male 3:29 PM APPLICATION SYSTEMS ENGINEER Gender Identity Male 08/06/2024 3:05 PM APPLICATION SYSTEMS ENGINEER Sexual Orientation Straight 08/06/2024 3: 05 PM APPLICATION SYSTEMS ENGINEER Occupation Industry Job Start Date Job End [...] documented as of this encounter Care Teams Civil Preparedness Coordinator Relationship Specialty [place] [address] [address], [address] [place] [address] PCP - General Nurse Practitioner Family 12/09/22 08/22/23 [place] [address] [address], [address] [place] [address] PCP - General NURSE PRACTITIONER ADULT HEALTH 08/23/23 01/03/24 [place] [address] [address] [place] [address] PCP - General INTERNAL MEDICINE 01/04/24 Romulo Wynn MD [address] [address] [place] Fis[employer] Technical Officer CARDIOVASCULAR DISEASE 08/19/17 documented as of this encounter
[2024-10-09 10:26] LABS: D Dimer 0.87 ug/mL (<0.48)
== END 2024-10-09 11:50 | disposition home or self-care (01) ==
PROVIDERS: Emergency Medicine; Emergency Provider Physician Assistant
DX: R42 Dizziness and giddiness (principal); I95.1 Orthostatic hypotension; G47.30 Sleep apnea, unspecified; E78.5 Hyperlipidemia, unspecified; I10 Essential (primary) hypertension
CPT/HCPCS: 36415; 71046; 71275; 80053; 85025; 85380; 93005; 96360; 99284; J7030; Q9967

== ENCOUNTER 2024-10-23 07:42 | Emergency (ER) | payer OTHER, SELFPAY ==
--- NOTE | ~2024-10-23 | CT_ITS ---
CT abdomen pelvis wo con Ordering provider: Sarah Mcqueen MD History: 59 years Male with . Kidney stone . Comparison: October 24, 2017 Technique: CT abdomen and pelvis without IV and without oral contrast. Automated exposure control and iterative reconstruction technique were employed. The dose-length product was 557.96 mGy-cm. Findings: VISUALIZED LOWER CHEST: Dependent atelectatic changes. UPPER ABDOMINAL ORGANS: Liver: Hepatomegaly. Gallbladder: Normal. Spleen: Normal. Stomach/duodenum: Normal. Pancreas: Normal. Adrenals: Normal. Kidneys: Bilateral kidney stones in both upper and lower poles with the largest in the right kidney u pper pole measuring 5 mm.. PELVIC ORGANS: The bladder is underfilled with thickened wall. Evaluation for cystitis advised. BOWEL AND MESENTERY: Colon: No evidence of diverticulitis. Fecal material is seen in the right side of the colon. Slight t hickening of the wall of the sigmoid colon is seen. Follow-up advised.. Normal appendix. Small Bowel: Normal. No obstruction. Peritoneum/mesentery: No free air or free fluid. No mesenteric lymphadenopathy. RETROPERITONEUM: Slight dilatation of the distal aorta is seen measuring 3.4 x 3.3 cm. Moderate ather omatous disease of the abdominal aorta. No retroperitoneal lymphadenopathy. MUSCULOSKELETAL: Superficial soft tissues: The superficial soft tissues are normal. Bones: Age appropriate degenerative changes of the spine. Bilateral hip osteoarthritic changes. IMPRESSION: 1. Bilateral kidney stones with no hydronephrotic changes. 2. Borderline hepatomegaly. 3. No evidence of appendicitis, diverticulitis or intestinal obstruction. 4. Slight thickening of the wall of the sigmoid colon. Follow-up and further evaluation advised. 5. Aneurysmal dilatation of the distal aorta. Follow-up advised. Reviewed, dictated and finalized at location A. IMPRESSION: 1. Bilateral kidney stones with no hydronephrotic changes. 2. Borderline hepatomegaly. 3. No evidence of appendicitis, diverticulitis or intestinal obstruction. 4. Slight thickening of the wall of the sigmoid colon. Follow-up and further e valuation advised. 5. Aneurysmal dilatation of the distal aorta. Follow-up advised.
--- OUTSIDE RECORDS SUMMARY | 2024-10-23 07:45 | XMS_ITS | Clinical Summary ---
Author Organization [facility] Address [address] [facility] [place] [address] Care Team Providers Care Tank Filler Name Role Phone Unavailable Primary Care Provider Unavailabl e Source Comments [facility],non-owned Affiliates and Associated Physician Practices is amultiple site organization consisting of ambulatory clinics and hospital sitesin [place], [place], [place] and [place]. This disclosure is being madepursuant to the Care Everywhere program and may not contain all information available regarding this patient. Last updated 18.[facility] Team [facility] Allergies No known active allergies Medications * [...] on file Legal Sex Male 11:43 AM CABLE FERRY OPERATOR Gender Identity Not on file Sexual Orientation Not on file Last Filed Vital Signs Vital Sign Reading Time Taken Comments Blood Pressure 136/88 04/20/2017 2:09 PM CABLE FERRY OPERATOR Pulse 85 04/20/2017 2:09 PM CABLE FERRY OPERATOR Temperature 36.9 C (98.4 F) 04/20/2017 2:09 PM CABLE FERRY OPERATOR Respiratory Rate 16 04/20/2017 2:09 PM CABLE FERRY OPERATOR Oxygen Saturation 97% 04/20/2017 2:09 PM CABLE FERRY OPERATOR Inhaled Oxygen Concentration - - Weight 131.5 kg (290 lb) 04/20/2017 2:09 PM CABLE FERRY OPERATOR Height 182.9 cm (6') 04/20/2017 2:09 PM CABLE FERRY OPERATOR Body Mass Index 39.33 04/20/2017 2:09 PM CABLE FERRY OPERATOR Plan of Treatment Health Maintenance Due Date [...]
--- OUTSIDE RECORDS SUMMARY | 2024-10-23 07:45 | XMS_ITS | Encounter Summary ---
Author Organization [facility] Address [address] [place] [address] Care Team Providers Care Pipe Cleaner Name Role Phone Romulo Wynn MD Unavailable [phone] Dianna Blackman NP Primary Care Provider [phone] Kaden Lord NP Primary Care Provide r Tian Taveras MD Primary Care Provider [phone] Encounter Details Date Type Department Care Team (Late st Contact Info) Description 08/22/2023 [employer] Message Enc [facility] Medical Group Family & Internal Medicine [address] [address] [facility] Provider appointment Social History Tobacco Use Types Packs/Day Years Used Date Smoking Tobacco: Every Day Cigarettes 0.5 36.4 Started: 1988 Smokeless Tobacco: Never Comments:advised to stop Alcohol Use Standard Drinks/Week Comments No 0 (1 standard drink = 0.6 oz pur e alcohol) PHQ-2 Answer Date Recorded Patient Health Questionnaire-2 Score 0 08/22/2023 Sex and Gender Information Value Date Recorded Sex Assigned at Male 08/06/2024 3:05 PM SOLE SEAMER Legal Sex Male 3:29 PM SOLE SEAMER Gender Identity Male 08/06/2024 3:05 PM SOLE SEAMER Sexual Orientation Straight 08/06/2024 3: 05 PM SOLE SEAMER Occupation Industry Job Start Date Job End [...] documented as of this encounter Care Teams Pipe Cleaner Relationship Specialty [place] [address] [address], [address] [place] [address] PCP - General Nurse Practitioner Family 12/09/22 08/22/23 [place] [address] [address], [address] [place] [address] PCP - General NURSE PRACTITIONER ADULT HEALTH 08/23/23 01/03/24 [place] [address] [address] [place] [address] PCP - General INTERNAL MEDICINE 01/04/24 Romulo Wynn MD [address] [address] [place] Plastic Extrusion Operator CARDIOVASCULAR DISEASE 08/19/17 documented as of this encounter
--- OUTSIDE RECORDS SUMMARY | 2024-10-23 07:45 | XMS_ITS | Encounter Summary ---
Author Organization [facility] Address [address] [place] [address] Care Team Providers Care Staff Development Educator Name Role Phone SeverianoFracisco nugentsalma DUPREE Primary Care Provider UnaRomulo Glover MD Unavailable [phone] Shilpa Savage NP Primary Care Provider UnavaNatasha Coleman Primary Care Provider [phone] New Referring, Provider Primary Care Provider Un available Natasha Arreola Primary Care Provider [phone] Dianna Blackman NP Primary Care Provider [phone] Kaden Lord NP Primary Care Provide r Tian Taveras MD Primary Care Provider [phone] Encounter Details Date Type Department Care Team (Late st Contact Info) Description 08/26/2017 Abstract [facility] at [address] [address] Nga Cruz [place] Social History Tobacco Use Types Packs/Day Years Used Date Smoking Tobacco: Every Day Cigarettes 1 36.4 Started: 1988 Alcohol Use Standard Drinks/Week Comments No 0 (1 standard drink = 0.6 oz pur e alcohol) Sex and Gender Information Value Date Recorded Sex Assigned at Male 08/06/2024 3:05 PM GLOVE TAGGER Legal Sex Male 3:29 PM GLOVE TAGGER Gender Identity Male 08/06/2024 3:05 PM GLOVE TAGGER Sexual Orientation Straight 08/06/2024 3: 05 PM GLOVE TAGGER Occupation Industry Job Start Date Job End [...] Final Result * LIPID PANEL (06/09/2017) Pathologist [facility] CHOLESTEROL 236 HDL 38 TRIGLYCERIDES 140 LDL [...] on filedocumented in this encounter Care Teams Staff Development Educator Relationship Specialty Start Date End Date Moriah العلي APNP PCP - General PLANT ECOLOGIST 08/11/17 06/28/18 Shilpa Savage NP [address] [address] PCP - General Nurse Practitioner Family 06/29/18 07/25/19 [place] [address] [place] [address] PCP - General PHYSICIAN BIOLOGY TEACHER 07/26/19 09/30/19 [facility], Provider [address] [place] [address] PCP - General UNKNOWN PHYSICIAN SPECIALTY 10/01/19 10/29/19 [place] [address] [place] [address] PCP - General PHYSICIAN BIOLOGY TEACHER 10/30/19 12/08/22 [place] [address] [facility], [address] [address] PCP - General Nurse Practitioner Family 12/09/22 08/22/23 Kaden Lord, [place] [address] [address], [address] [place] [address] PCP - General NURSE PRACTITIONER ADULT HEALTH 08/23/23 01/03/24 [place] [address] [address] PCP - General INTERNAL MEDICINE 01/04/24 Romulo Wynn MD [facility]. [address] [address] [place] Lathe Operator CARDIOVASCULAR DISEASE 08/19/17 documented as of this encounter
--- OUTSIDE RECORDS SUMMARY | 2024-10-23 07:45 | XMS_ITS | Clinical Summary ---
Author Organization [facility] Address [facility] [place] [address] Care Team Providers Care Front Desk Associate Name Role Phone Romulo Wynn MD Unavailable [phone] Tian Taveras MD Primary Care Provider [phone] Allergies No known active allergies Medications amLODIPine-benaze pril (LOTREL) 5-20 MG capsuleIndication s:Primary hypertension Take 2 capsules by mouth daily. 180 capsule 1 08/06/19 25 Active atorvastatin (LIPITOR) 40 MG tabletIndications :Other hyperlipidemia Take 1 tablet (40 mg total) by mouth daily. 90 tablet 08/06/19 25 Active hydrOXYzine (ATARAX) 25 MG [...] for Anxiety. 15 tablet 10/06/19 25 Active hydroCHLOROthiazi de (HYDRODIURIL) 25 MG tabletIndications :Primary hypertension TAKE 1 TABLET BY MOUTH EVERY DAY IN THE MORNING 30 tablet 1 10/15/19 25 Active DULoxetine (CYMBALTA) 30 MG capsuleIndication s:Anxiety associated with depression Take 1 capsule (30 mg total) by mouth daily. 90 capsule 08/06/19 25 025 Discontinued(R eorder) hydroCHLOROthiazi de (HYDRODIURIL) 25 MG tabletIndications :Primary hypertension Take 1 tablet (25 mg total) by mouth every morning. 30 tablet 1 08/06/19 25 025 Discontinued DULoxetine (CYMBALTA) 30 MG capsuleIndication s:Anxiety associated [...] (05/20/2022): Added automatically from request for surgery [id number] Diarrhea, unspecified type 05/20/2022 0 01/12/2023 Overview (05/20/2022): Added automatically from request for surgery [id number] Left ear pain 09/23/2021 01/12/2023 Encounter for screening for malignant neoplasm of colon 03/26/2019 01/12/2023 Overview (03/26/2019): Added automatically from request for surgery [id number] BMI 40.0-44.9, adult 12/06/2018 023 Acute recurrent maxillary sinusitis 12/06/2018 01/12/2023 Screening for colon cancer 04/04/2018 0 06/30/2018 Neck pain, acute 11/15/2017 06/30/2018 Snoring 08/09/2017 06/30/2018 Acute bronchitis, unspecified organism 05/31/2017 06/30/2018 Chest discomfort 06/30/2018 Encounters Date Type Department Care Team Description 10/03/2024 Telephone [facility] Family & Internal Medicine [facility] [address] [place] [address] Tian Taveras MD Medication Request 08/06/2024 3:00 PM EVALUATOR Office Visit [facility] Family & Internal [facility] [address] [place] [address] Tian Taveras MD Hypertension (3 [...] 0.5 36.4 Started: 1988 Smokeless Tobacco: Never Tobacco Cessation:Ready to Q uit: No; Counseling Given: Yes Comments:advised to stop Alcohol Use Standard Drinks/Week Comments No 0 (1 standard drink = 0.6 oz pur e alcohol) PHQ-2 Answer Date Recorded Patient Health Questionnaire-2 Score 0 08/06/2024 Sex and Gender Information Value Date Recorded Sex Assigned at Male 08/06/2024 3:05 PM EVALUATOR Legal Sex Male 3:29 PM EVALUATOR Gender Identity Male 08/06/2024 3:05 PM EVALUATOR Sexual Orientation Straight 08/06/2024 3: 05 PM EVALUATOR 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 Not on file Last Filed Vital Signs Vital Sign Reading Time Taken Comments Blood Pressure 132/82 08/06/2024 2:59 PM EVALUATOR Pulse 74 08/06/2024 2:59 PM EVALUATOR Temperature 36.6 C (97.9 F) 08/06/2024 2:59 PM EVALUATOR Respiratory Rate 16 08/06/2024 2:59 PM EVALUATOR Oxygen Saturation 97% 08/06/2024 2:59 PM EVALUATOR Inhaled Oxygen Concentration - - Weight 117 kg (258 lb) 08/06/2024 2:59 PM EVALUATOR Height 180.3 cm (5' 11 ) 08/06/2024 2:59 PM EVALUATOR Body Mass Index 35.98 08/06/2024 2:59 PM EVALUATOR Plan of Treatment Health Maintenance Due Date [...] 05/2022, 04/20/2021, Additional history exists PHQ-2 (Physician [place]) Completed 08/06/2024 Meningococcal B Vaccine Aged Out No l onger eligible based on patient's age to complete this topic Meningococcal Vaccine Aged Out No cr eugenio eligible based on patient's age to complete this topic RSV Immunizations Under 20 Months Aged Out No longer eligible based on patient's age to complete this topic Insurance [employer] Care Teams Front Desk Associate Relationship Specialty [place] [address] [facility] [address] [place] [address] PCP - General INTERNAL MEDICINE 01/04/24 Romulo Wynn MD [facility]. [address] [address] [place] Surveyor'S Assistant CARDIOVASCULAR DISEASE 08/19/17
[2024-10-23 07:46] VITALS: BP 133/77; PULSE 82; RESP 18; TEMP 37.1; O2SAT 95
--- NOTE | 2024-10-23 08:01 | ED_ITS ---
HPI - Abdominal Pain General Chief Complaint: Abdominal Pain Stated Complaint: kidney stones Time Seen by Provider: 10/23/24 07:59 Source: patient Mode of arrival: ambulatory Limitations: no limitations History of Present Illness HPI narrative: 59 years old white male came to the ED with left flank pain started 1 week ago, intermittent, became constant lately. Worse with laying down flat, better standing and walking. Patient had similar symptoms years ago secondary to kidney stones. He denies any fever, chills, nausea, vomiting. History of hypertension, hyperlipidemia. Related Data Home Medications ?Medication ?Instructions ?Recorded ?Confirmed ?Last Taken ?Type amlodipine 5 mg-benazepril 20 mg 2 cap DAILY 10/16/21 10/11/24 Unknown History capsule atorvastatin 40 mg tablet 40 mg DAILY 10/16/21 10/11/24 Unknown History duloxetine 30 mg capsule,delayed 30 mg PO DAILY 10/11/24 10/11/24 Unknown History release hydrochlorothiazide 25 mg tablet 12.5 mg PO DAILY 10/11/24 10/11/24 Unknown History Allergies Allergy/AdvReac Type Severity Reaction Status Date / Time No Known Allergies Allergy Verified 10/23/24 07:58 Review of Systems 2 Review of Systems: All systems reviewed & are unremarkable except as noted in HPI and below PMFSH Past Medical History Medical History History of sleep apnea Mixed hyperlipidemia Essential (primary) hypertension Family History Family History Mother Patient's mother is in good health Family history of pulmonary embolism Father Patient's father is in good health Social History Social History Smoking status: Heavy tobacco smoker Alcohol intake: never Exam 2 Narrative: General appearance: Well-developed, well-nourished Skin: Normal color Head: Normocephalic, nontraumatic Eyes: Clear conjunctiva ENT: Oropharynx normal, ears normal, nose normal Neck: Supple, nontender Chest and respiratory: Airway patent, no respiratory distress, no accessory muscle use Heart: Regular rate/rhythm Abdomen: Soft, nontender, no organomegaly, quiet bowel sounds Vascular: Normal peripheral pulses, normal capillary refill. Musculoskeletal: Diffuse tenderness left lower back, no bruises, no swelling, no rash, limited range of motion at the lumbar area. Neurologic: Alert and oriented ?3, BROKE HANDLER is normal as tested, no gross motor deficit Course Vital Signs Vital signs: Vital Signs Temperature 37.1 C 10/23/24 07:46 Pulse Rate 82 10/23/24 07:46 Respiratory Rate 18 10/23/24 07:46 Blood Pressure 133/77 10/23/24 07:46 Pulse Oximetry 95 10/23/24 07:46 Oxygen Delivery Room Air 10/23/24 07:46 Temperature 37.1 C 10/23/24 07:46 Pulse Rate 60 10/23/24 08:37 Respiratory Rate 14 10/23/24 08:37 Blood Pressure 107/67 10/23/24 08:37 Pulse Oximetry 92 10/23/24 08:37 Oxygen Delivery Room Air 10/23/24 07:46 MDM - Abdominal Pain MDM Narrative Medical decision making narrative: Differential diagnosis include musculoskeletal, kidney stone, pyelonephritis. Blood workup today includes CBC, CMP, lipase showed no significant abnormality Urinalysis showed no significant abnormality CT abdomen and pelvis without contrast showed Bilateral kidney stones, borderline hepatomegaly, slight thickening of the wall of the sigmoid follow-up for further evaluation advice Aneurysmal dilatation of the distal aorta follow-up advice Musculoskeletal pain is my concern. Discharged on naproxen, cyclobenzaprine, Follow-up with family physician for further evaluation of the sigmoid colon and aortic dilatation. The pt was discharged to home.the pt,s condition upon discharge was fair,education was provided to the pt in reference to the final impression,discharge study results,treatment,prognosis and need for follow up A copy of the CT scan report was given to the patient prior to discharge. Patient understood the CT scan report and the seriousness of it.. Differential Diagnosis Differential diagnosis: Likely other (As above) Lab Data 10/23/24 07:59 10/23/24 07:59 Labs: Lab Results 10/23/24 Range/Units 07:59 WBC 8.7 (4.5-10.0) K/mm3 RBC 4.76 (4.6-6.20) M/mm3 Hgb 15.3 (14.0-18.0) g/dL Hct 46.9 (42.0-52.0) % MCV 98.5 (80-100) fl MCH 32.1 (26-34) pg MCHC 32.6 (32-36) g/dl RDW 13.1 (11.5-14.5) % Plt Count 168 (150-375) k/mm3 MPV 11.1 H (7.4-10.4) fl Immature Gran % (Auto) 0.2 (0-0.5) % Neut % (Auto) 62.9 (45.5-73.1) % Lymph % (Auto) 29.4 (18.3-44.2) % [place] % (Auto) 5.2 (2.6-8.5) % Eos % (Auto) 2.0 (0-4.4) % Baso % (Auto) 0.3 (0.2-1.2) % Lymph # (Auto) 2.54 (0.9-3.2) K/mm3 [place] # (Auto) 0.5 (0.1-0.6) K/mm3 Eos # (Auto) 0.2 (0-0.3) K/mm3 Baso # (Auto) 0.0 (0.0-0.1) K/mm3 Abs Immat Gran (auto) 0.02 (0.00-0.031) K/mm3 Absolute Neuts (auto) 5.4 (1.3-6.7) K/mm3 Absolute Nucleated RBC 0.000 (0.0-0.012) K/mm3 Nucleated RBC % 0.0 (0.0-0.2) % Sodium 143 (137-145) mmol/L Potassium 3.9 (3.4-5.0) mmol/L Chloride 103 (98-107) mmol/L Carbon Dioxide 33 H (22-30) mmol/L Anion Gap 7 (4-12) mmol/L BUN 13 (9-20) mg/dL Creatinine 0.99 (0.7-1.3) mg/dL Estim Creat Clear Calc 93 ml/min Estimated GFR > 60 (59 - ) Glucose 118 H (65-110) mg/dL Calcium 9.3 (8.4-10.2) mg/dL Total Bilirubin 0.7 (0.2-1.3) mg/dL AST 25 (17-59) U/L ALT 24 (6-50) U/L Alkaline Phosphatase 69 (38-126) U/L Total Protein 8.0 (6.3-8.2) g/dL Albumin 4.6 (3.5-5.1) g/dL Lipase 61 (23-300) U/L Urine Color Yellow (Yellow) Urine Appearance Clear (Clear) Urine pH 6.0 (5.0-9.0) Ur Specific [place] 1.017 (1.001-1.035) Urine Protein Negative (Negative) mg/dL Urine Glucose (UA) Negative (Negative) mg/dL Urine Ketones Negative (Negative) mg/dL Ur Blood (Man) Negative (Negative) Urine Nitrate Negative (Negative) Urine Bilirubin Negative (Negative) Urine Urobilinogen 0.2 (<2.0) mg/dL Leukocyte Esterase Rfl Trace H (Negative) [place]/UL Urine RBC 0-2 (0-2) /hpf Urine WBC 0-5 (0-3) /hpf Ur Squamous Epith Cells None seen (Few) /hpf Urine Bacteria None seen /hpf Urine Casts 0-2 Imaging Data Radiologist's impression: ITS Impressions Abdomen/Pelvis CT 10/23/24 08:47 IMPRESSION: 1. Bilateral kidney stones with no hydronephrotic changes. 2. Borderline hepatomegaly. 3. No evidence of appendicitis, diverticulitis or intestinal obstruction. 4. Slight thickening of the wall of the sigmoid colon. Follow-up and further evaluation advised. 5. Aneurysmal dilatation of the distal aorta. Follow-up advised. Discharge Plan Discharge Clinical Impression: Lower back pain Patient Disposition: Home Condition: Stable Instructions: Low Back Strain (ED), Lower Back Exercises (ED) Additional Instructions: Return if symptoms are worsening , call your family physician for appointment, take Tylenol as as needed for aches and pain, continue home medications. CT scan of the abdomen and pelvis today showed Slight thickening of the wall of the sigmoid colon. Follow-up with buffing wheel operator for further evaluation is recommended Slight dilatation of the distal aorta 3.4 x 3.3 cm. Follow up with family physician recommended. Patient Language: Turkish Prescriptions: New cyclobenzaprine 10 mg tablet 10 mg PO TID PRN (Reason: muscle spasm) Qty: 20 0RF No Action hydrochlorothiazide 25 mg tablet 12.5 mg PO DAILY duloxetine 30 mg capsule,delayed release(DR/EC) 30 mg PO DAILY atorvastatin 40 mg tablet 40 mg DAILY amlodipine-benazepril 5-20 mg capsule 2 cap DAILY lorazepam [Ativan] 0.5 mg tablet 0.5 mg PO BID PRN (Reason: anxiety) Qty: 7 0RF Follow-up/Referrals: Scooby Zambrano MD [Primary Care Provider] -
[2024-10-23] MEDS: SODIUM CHLORIDE 0.9% IV 1,000 ML 999 ML IV CONT (08:07)
--- OUTSIDE RECORDS SUMMARY | 2024-10-23 08:07 | XMS_ITS | Clinical Summary ---
Author Organization [facility] Address [address] [place] [address] Care Team Providers Care Insurance Claims Supervisor Name Role Phone Unavailable Primary Care Provider Unavailabl e Source Comments [facility],non-owned Affiliates and Associated Physician Practices is amultiple site organization consisting of ambulatory clinics and hospital sitesin [place], [place], [place] and [place]. This disclosure is being madepursuant to the Care Everywhere program and may not contain all information available regarding this patient. Last updated 18.[facility] Allergies No known active allergies Medications * [...] on file Legal Sex Male 11:43 AM QUALITY REVIEWER Gender Identity Not on file Sexual Orientation Not on file Last Filed Vital Signs Vital Sign Reading Time Taken Comments Blood Pressure 136/88 04/20/2017 2:09 PM QUALITY REVIEWER Pulse 85 04/20/2017 2:09 PM QUALITY REVIEWER Temperature 36.9 C (98.4 F) 04/20/2017 2:09 PM QUALITY REVIEWER Respiratory Rate 16 04/20/2017 2:09 PM QUALITY REVIEWER Oxygen Saturation 97% 04/20/2017 2:09 PM QUALITY REVIEWER Inhaled Oxygen Concentration - - Weight 131.5 kg (290 lb) 04/20/2017 2:09 PM QUALITY REVIEWER Height 182.9 cm (6') 04/20/2017 2:09 PM QUALITY REVIEWER Body Mass Index 39.33 04/20/2017 2:09 PM QUALITY REVIEWER Plan of Treatment Health Maintenance Due Date [...]
--- OUTSIDE RECORDS SUMMARY | 2024-10-23 08:07 | XMS_ITS | Encounter Summary ---
Author Organization [facility] Address [address] [place] [address] Care Team Providers Care Channel Opener Name Role Phone SeverianoFracisco nugentsalma DUPREE Primary Care Provider UnaRomulo Glover MD Unavailable [phone] Shilpa Savage NP Primary Care Provider UnavaNatasha Coleman Primary Care Provider [phone] New Referring, Provider Primary Care Provider Un available Natasha Arreola Primary Care Provider [phone] Dianna Blackman NP Primary Care Provider [phone] Kaden Lord NP Primary Care Provide r Tian Taveras MD Primary Care Provider [phone] Encounter Details Date Type Department Care Team (Late st Contact Info) Description 08/26/2017 Abstract [facility] at [address] [address] Nga Cruz [place] Social History Tobacco Use Types Packs/Day Years Used Date Smoking Tobacco: Every Day Cigarettes 1 36.4 Started: 1988 Alcohol Use Standard Drinks/Week Comments No 0 (1 standard drink = 0.6 oz pur e alcohol) Sex and Gender Information Value Date Recorded Sex Assigned at Male 08/06/2024 3:05 PM PLASTIC MANAGER Legal Sex Male 3:29 PM PLASTIC MANAGER Gender Identity Male 08/06/2024 3:05 PM PLASTIC MANAGER Sexual Orientation Straight 08/06/2024 3: 05 PM PLASTIC MANAGER Occupation Industry Job Start Date Job End [...] Final Result * LIPID PANEL (06/09/2017) Pathologist [facility] CHOLESTEROL 236 HDL 38 TRIGLYCERIDES [...] on filedocumented in this encounter Care Teams Channel Opener Relationship Specialty Start Date End Date Moriah العلي APNP PCP - General BRIDGE MAINTENANCE WORKER 08/11/17 06/28/18 Shilpa Savage NP [address] [address] PCP - General Nurse Practitioner Family 06/29/18 07/25/19 [place] [address] [place] [address] PCP - General PHYSICIAN AIRCRAFT STRUCTURAL REPAIR MECHANIC 07/26/19 09/30/19 New [facility], Provider [address] [place] [address] PCP - General UNKNOWN PHYSICIAN SPECIALTY 10/01/19 10/29/19 [place] [address] [place] [address] PCP - General PHYSICIAN AIRCRAFT STRUCTURAL REPAIR MECHANIC 10/30/19 12/08/22 [place] [address] [facility], [address] [address] PCP - General Nurse Practitioner Family 12/09/22 08/22/23 Kaden Lord, [place] [address] [address], [address] [place] [address] PCP - General NURSE PRACTITIONER ADULT HEALTH 08/23/23 01/03/24 [place] [address] [address] PCP - General INTERNAL MEDICINE 01/04/24 Romulo Wynn MD [facility]. [address] [address] [place] Bagger And Stock Handler Helper CARDIOVASCULAR DISEASE 08/19/17 documented as of this encounter
--- OUTSIDE RECORDS SUMMARY | 2024-10-23 08:07 | XMS_ITS | Clinical Summary ---
Author Organization [facility] Address [facility] access hospital[address] [place] [address] Care Team Providers Care Wind Energy Systems Installer Name Role Phone Romulo Wynn MD Unavailable [phone] Tian Taveras MD Primary Care Provider [phone] Allergies No known active allergies Medications amLODIPine-benaze [...] (05/20/2022): Added automatically from request for surgery [id number] Diarrhea, unspecified type 05/20/2022 0 01/12/2023 Overview (05/20/2022): Added automatically from request for surgery [id number] Left ear pain 09/23/2021 01/12/2023 Encounter for screening for malignant neoplasm of colon 03/26/2019 01/12/2023 Overview (03/26/2019): Added automatically from request for surgery [id number] BMI 40.0-44.9, adult 12/06/2018 023 Acute recurrent maxillary sinusitis 12/06/2018 01/12/2023 Screening for colon cancer 04/04/2018 0 06/30/2018 Neck pain, acute 11/15/2017 06/30/2018 Snoring 08/09/2017 06/30/2018 Acute bronchitis, unspecified organism 05/31/2017 06/30/2018 Chest discomfort 06/30/2018 Encounters Date Type Department Care Team Description 10/03/2024 Telephone [facility] Family & Internal Medicine [facility] [address] [place] [address] Tian Taveras MD Medication Request 08/06/2024 3:00 PM TEACHER DRAMATICS Office Visit [facility] Family & Internal [facility] [address] [place] [address] Tian Taveras MD Hypertension (3 [...] Sex Assigned at Male 08/06/2024 3:05 PM TEACHER DRAMATICS Legal Sex Male 3:29 PM TEACHER DRAMATICS Gender Identity Male 08/06/2024 3:05 PM TEACHER DRAMATICS Sexual Orientation Straight 08/06/2024 3: 05 PM TEACHER DRAMATICS 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 Not on file Last Filed Vital Signs Vital Sign Reading Time Taken Comments Blood Pressure 132/82 08/06/2024 2:59 PM TEACHER DRAMATICS Pulse 74 08/06/2024 2:59 PM TEACHER DRAMATICS Temperature 36.6 C (97.9 F) 08/06/2024 2:59 PM TEACHER DRAMATICS Respiratory Rate 16 08/06/2024 2:59 PM TEACHER DRAMATICS Oxygen Saturation 97% 08/06/2024 2:59 PM TEACHER DRAMATICS Inhaled Oxygen Concentration - - Weight 117 kg (258 lb) 08/06/2024 2:59 PM TEACHER DRAMATICS Height 180.3 cm (5' 11 ) 08/06/2024 2:59 PM TEACHER DRAMATICS Body Mass Index 35.98 08/06/2024 2:59 PM TEACHER DRAMATICS Plan of Treatment Health Maintenance Due Date [...] 05/2022, 04/20/2021, Additional history exists PHQ-2 (Physician [place]) Completed 08/06/2024 Meningococcal B Vaccine Aged Out No l onger eligible based on patient's age to complete this topic Meningococcal Vaccine Aged Out No cr eugenio eligible based on patient's age to complete this topic RSV Immunizations Under 20 Months Aged Out No longer eligible based on patient's age to complete this topic Insurance UMR Care Teams Wind Energy Systems Installer Relationship Specialty [place] [address] [facility] [address] [place] [address] PCP - General INTERNAL MEDICINE 01/04/24 Romulo Wynn MD [facility]. [address] [address] Niru Hired Hand CARDIOVASCULAR DISEASE 08/19/17
--- OUTSIDE RECORDS SUMMARY | 2024-10-23 08:07 | XMS_ITS | Encounter Summary ---
Author Organization [facility] Address [address] [place] [address] Care Team Providers Care Roll Filler Name Role Phone Romulo Wynn MD Unavailable [phone] Dianna Blackman NP Primary Care Provider [phone] Kaden Lord NP Primary Care Provide r Tian Taveras MD Primary Care Provider [phone] Encounter Details Date Type Department Care Team (Late st Contact Info) Description 08/22/2023 NSS Labs Message Enc [facility] Family & Internal Medicine [address] [address] [facility] Provider appointment Social History Tobacco [...] Sex Assigned at Male 08/06/2024 3:05 PM RADIO INSTALLER Legal Sex Male 3:29 PM RADIO INSTALLER Gender Identity Male 08/06/2024 3:05 PM RADIO INSTALLER Sexual Orientation Straight 08/06/2024 3: 05 PM RADIO INSTALLER Occupation Industry Job Start Date Job End [...] documented as of this encounter Care Teams Roll Filler Relationship Specialty Start [place] [address] [address], [address] [place] [address] PCP - General Nurse Practitioner Family 12/09/22 08/22/23 [place] [address] [address], [address] [place] [address] PCP - General NURSE PRACTITIONER ADULT HEALTH 08/23/23 01/03/24 [place] [address] [address] [place] [address] PCP - General INTERNAL MEDICINE 01/04/24 Romulo Wynn MD [address] [address] [place] Simulation Technician CARDIOVASCULAR DISEASE 08/19/17 documented as of this encounter
[2024-10-23] MEDS: ONDANSETRON INJ 4 MG/2 ML VIAL IV PUSH (08:08)
[2024-10-23] MEDS: TAMSULOSIN HCL 0.4 MG CAPSULE PO (08:08)
[2024-10-23] MEDS: HYDROmorphone HCL INJ (*CRX) 2 MG/ML VIAL 0.5 MG IV PUSH (08:09)
[2024-10-23 08:12] LABS: Basophils Percent Auto 0.3 % (0.2-1.2); Eosinophils Absolute Auto 0.2 K/mm3 (0-0.3); Hematocrit 46.9 % (42.0-52.0); Hemoglobin 15.3 g/dL (14.0-18.0); Immature Granulocyte Absolute 0.02 K/mm3 (0.00-0.031); Immature Granulocyte Percent A 0.2 % (0-0.5); Lymphocytes Absolute Auto 2.54 K/mm3 (0.9-3.2); Lymphocytes Percent Auto 29.4 % (18.3-44.2); Mean Corpuscular HGB Conc 32.6 g/dl (32-36); Mean Corpuscular Hemoglobin 32.1 pg (26-34); Mean Corpuscular Volume 98.5 fl (80-100); Mean Platelet Volume 11.1 fl (7.4-10.4); Monocytes Absolute Auto 0.5 K/mm3 (0.1-0.6); Monocytes Percent Auto 5.2 % (2.6-8.5); Neutrophils Absolute Auto 5.4 K/mm3 (1.3-6.7); Neutrophils Percent Auto 62.9 % (45.5-73.1); Platelet Count Result 168 k/mm3 (150-375); Red Blood Count 4.76 M/mm3 (4.6-6.20); Red Cell Distribution Width 13.1 % (11.5-14.5); White Blood Count 8.7 K/mm3 (4.5-10.0)
[2024-10-23 08:20] LABS: Add Urine Microscopic? YES; Appearance Urine Clear (Clear); Bacteria Urine None Seen /hpf; Bilirubin Urine Negative (Negative); Blood Urine Negative (Negative); Color Urine Yellow (Yellow); Glucose Urine UA Negative (Negative); Ketones Urine Negative (Negative); Leukocyte Esterase Ur Trace LEU/UL (Negative); Nitrate Urine Negative (Negative); Non Pathogenic Casts 0-2; Protein Urine Negative (Negative); RBC Urine 0-2 /hpf (0-2); Specific Grav Ur 1.017 (1.001-1.035); Squamous Epithelial Cell Urine None Seen /hpf (Few); Urobilinogen Urine 0.2 mg/dL (<2.0); WBC Urine 0-5 /hpf (0-3)
[2024-10-23 08:26] LABS: Alanine Aminotransferase 24 U/L (6-50); Albumin Level 4.6 g/dL (3.5-5.1); Alkaline Phosphatase 69 U/L (38-126); Anion Gap 7 mmol/L (4-12); Aspartate Amino Transferase 25 U/L (17-59); Bilirubin,Total 0.7 mg/dL (0.2-1.3); Blood Urea Nitrogen 13 mg/dL (9-20); Calcium 9.3 mg/dL (8.4-10.2); Carbon Dioxide 33 mmol/L (22-30); Chloride 103 mmol/L (98-107); Estimated CRCL calculation 93 ml/min; Estimated Glomerular Filt Rate > 60; Glucose 118 mg/dL (65-110); Lipase 61 U/L (23-300); Potassium 3.9 mmol/L (3.4-5.0); Sodium 143 mmol/L (137-145)
[2024-10-23 08:37] VITALS: BP 107/67; PULSE 60; RESP 14; O2SAT 92
[2024-10-23 09:32] VITALS: BP 103/64; PULSE 62; RESP 16; O2SAT 93
[2024-10-23 09:47] VITALS: BP 103/64; PULSE 60; RESP 16; TEMP 36.4; O2SAT 92
== END 2024-10-23 09:48 | disposition home or self-care (01) ==
PROVIDERS: Emergency Provider Emergency Medicine; PCP Family Medicine
DX: M54.50 Low back pain, unspecified (principal); N20.0 Calculus of kidney; G47.30 Sleep apnea, unspecified; E78.5 Hyperlipidemia, unspecified; I10 Essential (primary) hypertension
CPT/HCPCS: 36415; 74176; 80053; 81001; 83690; 85025; 96361; 96374; 96375; 99284; A9270; J1171; J2405; J7030

== ENCOUNTER 2025-01-11 00:45 | Day surgery (SDC) | payer OTHER, SELFPAY ==
[2025-01-07 10:09] VITALS: BMI 32.5
--- OUTSIDE RECORDS SUMMARY | 2025-01-11 00:48 | XMS_ITS | Clinical Summary ---
Author Organization [facility] Address [facility] [place] [address] Care Team Providers Care Medical Clerical Assistant Name Role Phone Romulo Wynn MD Unavailable [phone] Tian Taveras MD Primary Care Provider [phone] Allergies No known active allergies Medications amLODIPine-benazep ril (LOTREL) 5-20 MG capsuleIndications :Primary hypertension Take 2 capsules by mouth daily. 180 capsule 1 08/06/19 25 Active hydrOXYzine (ATARAX) 25 MG tabletIndications: Anxiety Take 1 tablet (25 mg total) by mouth daily as needed. 90 tablet 1 08/06/19 25 Active gabapentin (NEURONTIN) 300 MG capsuleIndications :Foot pain, right Take 1 capsule (300 mg total) by mouth nightly at bedtime. 30 capsule 08/06/19 25 Active DULoxetine (CYMBALTA) 30 MG capsuleIndications :Anxiety associated with depression Take 2 capsules (60 mg total) by mouth daily. 120 capsule 10/06/19 25 Active LORazepam (ATIVAN) 0.5 MG tabletIndications: Anxiety associated with depression Take 1 tablet (0.5 mg total) by mouth daily as needed for Anxiety. 15 tablet 10/06/19 25 Active atorvastatin (LIPITOR) 40 MG tabletIndications: Other hyperlipidemia TAKE 1 TABLET BY MOUTH EVERY DAY 30 tablet 2 11/11/19 25 Active hydroCHLOROthiazid e (HYDRODIURIL) 25 MG tabletIndications: Primary hypertension TAKE 1 TABLET BY MOUTH EVERY DAY IN THE MORNING 30 tablet 1 12/19/19 25 Active hydroCHLOROthiazid e (HYDRODIURIL) 25 MG tabletIndications: Primary hypertension TAKE 1 TABLET BY MOUTH EVERY DAY IN THE MORNING 30 tablet 1 10/15/19 25 025 Discontinued Active Problems Problem Noted [...] (05/20/2022): Added automatically from request for surgery [id number] Diarrhea, unspecified type 05/20/2022 0 01/12/2023 Overview (05/20/2022): Added automatically from request for surgery [id number] Left ear pain 09/23/2021 01/12/2023 Encounter for screening for malignant neoplasm of colon 03/26/2019 01/12/2023 Overview (03/26/2019): Added automatically from request for surgery [id number] BMI 40.0-44.9, adult 12/06/2018 023 Acute recurrent maxillary sinusitis 12/06/2018 01/12/2023 Screening for colon cancer 04/04/2018 0 06/30/2018 Neck pain, acute 11/15/2017 06/30/2018 Snoring 08/09/2017 06/30/2018 Acute bronchitis, unspecified organism 05/31/2017 06/30/2018 Chest discomfort 06/30/2018 Encounters Date Type Department Care Team Description 12/13/2024 Telephone [facility] Family & Internal Medicine - [place] [address] [place] [address] Tian Taveras MD Colonoscopy from Last 3 Months Immunizations Immunization Administration [...] Date Smoking Tobacco: Every Day Cigarettes 0.5 36.6 Started: 1988 Smokeless Tobacco: Never Tobacco Cessation:Ready to Q uit: No; Counseling Given: Yes Comments:advised to stop Alcohol Use Standard Drinks/Week Comments No 0 (1 standard drink = 0.6 oz pur e alcohol) PHQ-2 Answer Date Recorded Patient Health Questionnaire-2 Score 0 08/06/2024 Sex and Gender Information Value Date Recorded Sex Assigned at Male 08/06/2024 3:05 PM HEALTH CONSULTANT Legal Sex Male 3:29 PM HEALTH CONSULTANT Gender Identity Male 08/06/2024 3:05 PM HEALTH CONSULTANT Sexual Orientation Straight 08/06/2024 3: 05 PM HEALTH CONSULTANT 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 Not on file Last Filed Vital Signs Vital Sign Reading Time Taken Comments Blood Pressure 132/82 08/06/2024 2:59 PM HEALTH CONSULTANT Pulse 74 08/06/2024 2:59 PM HEALTH CONSULTANT Temperature 36.6 C (97.9 F) 08/06/2024 2:59 PM HEALTH CONSULTANT Respiratory Rate 16 08/06/2024 2:59 PM HEALTH CONSULTANT Oxygen Saturation 97% 08/06/2024 2:59 PM HEALTH CONSULTANT Inhaled Oxygen Concentration - - Weight 117 kg (258 lb) 08/06/2024 2:59 PM HEALTH CONSULTANT Height 180.3 cm (5' 11) 08/06/2024 2:59 PM HEALTH CONSULTANT Body Mass Index 35.98 08/06/2024 2:59 PM HEALTH CONSULTANT Plan of Treatment Health Maintenance Due Date [...] 05/2022, 04/20/2021, Additional history exists PHQ-2 (Physician [place]) Completed 08/06/2024 Meningococcal B Vaccine Aged Out No l onger eligible based on patient's age to complete this topic Meningococcal Vaccine Aged Out No cr eugenio eligible based on patient's age to complete this topic RSV Immunizations Under 20 Months Aged Out No longer eligible based on patient's age to complete [place] [address] R Care Teams Medical Clerical Assistant Relationship Specialty [place] [address] [address] PCP - General INTERNAL MEDICINE 01/04/24 Romulo Wynn MD [facility]. [address] [place] [address] [place] Data Abstractor CARDIOVASCULAR DISEASE 08/19/17
--- OUTSIDE RECORDS SUMMARY | 2025-01-11 00:48 | XMS_ITS | Encounter Summary ---
Author Organization [facility] Address [address] [place] [address] Care Team Providers Care Knot Saw Operator Name Role Phone SeverianoFracisco nugentsalma DUPREE Primary Care Provider UnaRomulo Glover MD Unavailable [phone] Shilpa Savage NP Primary Care Provider UnavaNatasha Coleman Primary Care Provider + [phone] New Referring, Provider Primary Care Provider Un available Natasha Arreola Primary Care Provider + [phone] Dianna Blackman NP Primary Care Provider [phone] Kaden Lord NP Primary Care Provide r Tian Taveras MD Primary Care Provider [phone] Encounter Details Date Type Department Care Team (Late st Contact Info) Description 08/26/2017 Abstract [facility] at [address] [address] Nga Cruz MA Social History Tobacco Use Types Packs/Day Years Used Date Smoking Tobacco: Every Day Cigarettes 1 36.6 Started: 1988 Alcohol Use Standard Drinks/Week Comments No 0 (1 standard drink = 0.6 oz pur e alcohol) Sex and Gender Information Value Date Recorded Sex Assigned at Male 08/06/2024 3:05 PM ENERGY DIRECTOR Legal Sex Male 3:29 PM ENERGY DIRECTOR Gender Identity Male 08/06/2024 3:05 PM ENERGY DIRECTOR Sexual Orientation Straight 08/06/2024 3: 05 PM ENERGY DIRECTOR Occupation Industry Job Start Date Job End [...] on filedocumented in this encounter Care Teams Knot Saw Operator Relationship Specialty Start Date End Date Moriah العلي APNP PCP - General CUPOLA MECHANIC 08/11/17 06/28/18 Shilpa Savage NP [address] [address] PCP - General Nurse Practitioner Family 06/29/18 07/25/19 [place] [address] [place] [address] PCP - General PHYSICIAN LAWYER 07/26/19 09/30/19 [facility], Provider [address] [place] [address] PCP - General UNKNOWN PHYSICIAN SPECIALTY 10/01/19 10/29/19 [place] [address] [place] [address] PCP - General PHYSICIAN LAWYER 10/30/19 12/08/22 [place] [address] [facility], [address] [address] PCP - General Nurse Practitioner Family 12/09/22 08/22/23 Kaden Lord, [place] [address] [address], [address] [place] [address] PCP - General NURSE PRACTITIONER ADULT HEALTH 08/23/23 01/03/24 [place] [address] [address] PCP - General INTERNAL MEDICINE 01/04/24 Romulo Wynn MD [facility]. [address] [address] Dozier Leather Polisher CARDIOVASCULAR DISEASE 08/19/17 documented as of this encounter
--- OUTSIDE RECORDS SUMMARY | 2025-01-11 00:48 | XMS_ITS | Clinical Summary ---
Author Organization [facility] Address [address] [address] Care Team Providers Care Soldering Technician Name Role Phone Unavailable Primary Care Provider Unavailabl e Source Comments [facility] [employer],non-owned Affiliates and Associated Physician Practices is amultiple site organization consisting of ambulatory clinics and hospital sitesin [place], [place], [place] and [place]. This disclosure is being madepursuant to the Care Everywhere program and may not contain all information available regarding this patient. Last updated 18.[facility] [employer] Allergies No known active allergies Medications * [...] on file Legal Sex Male 11:43 AM BELL CAPTAIN Gender Identity Not on file Sexual Orientation Not on file Last Filed Vital Signs Vital Sign Reading Time Taken Comments Blood Pressure 136/88 04/20/2017 2:09 PM BELL CAPTAIN Pulse 85 04/20/2017 2:09 PM BELL CAPTAIN Temperature 36.9 C (98.4 F) 04/20/2017 2:09 PM BELL CAPTAIN Respiratory Rate 16 04/20/2017 2:09 PM BELL CAPTAIN Oxygen Saturation 97% 04/20/2017 2:09 PM BELL CAPTAIN Inhaled Oxygen Concentration - - Weight 131.5 kg (290 lb) 04/20/2017 2:09 PM BELL CAPTAIN Height 182.9 cm (6') 04/20/2017 2:09 PM BELL CAPTAIN Body Mass Index 39.33 04/20/2017 2:09 PM BELL CAPTAIN Plan of Treatment Health Maintenance Due Date [...] season) 2024 DEPRESSION SCREENING 06/13/2024 INFLUENZA VACCINE (#1) 2025 HIB VACCINE Aged Out No longer [...]
--- OUTSIDE RECORDS SUMMARY | 2025-01-11 00:48 | XMS_ITS | Encounter Summary ---
Author Organization [facility] Address [address] [place] [address] Care Team Providers Care Sales Department Supervisor Name Role Phone Romulo Wynn MD Unavailable [phone] Dianna Blackman NP Primary Care Provider [phone] Kaden Lord NP Primary Care Provide r Tian Taveras MD Primary Care Provider [phone] Encounter Details Date Type Department Care Team (Late st Contact Info) Description 08/22/2023 PharmAthene Message Enc [facility] Family & Internal Medicine [address] [address] [facility] Provider appointment Social History Tobacco Use Types Packs/Day Years Used Date Smoking Tobacco: Every Day Cigarettes 0.5 36.6 Started: 1988 Smokeless Tobacco: Never Comments:advised to stop Alcohol Use Standard Drinks/Week Comments No 0 (1 standard drink = 0.6 oz pur e alcohol) PHQ-2 Answer Date Recorded Patient Health Questionnaire-2 Score 0 08/22/2023 Sex and Gender Information Value Date Recorded Sex Assigned at Male 08/06/2024 3:05 PM EDUCATION ASSISTANT Legal Sex Male 3:29 PM EDUCATION ASSISTANT Gender Identity Male 08/06/2024 3:05 PM EDUCATION ASSISTANT Sexual Orientation Straight 08/06/2024 3: 05 PM EDUCATION ASSISTANT Occupation Industry Job Start Date Job End [...] documented as of this encounter Care Teams Sales Department Supervisor Relationship Specialty Start [place] [address] [address], [address] [place] [address] PCP - General Nurse Practitioner Family 12/09/22 08/22/23 [place] [address] [address], [address] [place] [address] PCP - General NURSE PRACTITIONER ADULT HEALTH 08/23/23 01/03/24 [place] [address] [address] [place] [address] PCP - General INTERNAL MEDICINE 01/04/24 Romulo Wynn MD [address] [address] [place] [employer] CARDIOVASCULAR DISEASE 08/19/17 documented as of this encounter
[2025-01-11 10:27] VITALS: BP 124/75; PULSE 74; RESP 18; TEMP 36.4; O2SAT 95
--- NOTE | 2025-01-11 10:32 | P.PNAN_ITS ---
Anes - Initial Pre Proc Eval Procedure: Operation Date: 01/11/25 11:30 Proposed Procedures p Diagnostic Colonoscopy - Lucian Gerber MD Date/Time: 01/11/25 10:32 Surgeon: Lucian Gerber MD Pre Op Diagnosis: Diarrhea, unspecified Patient Data Age: 59 Gender: M Height: 1.83 m Weight: 106.8 kg Last Vital Signs Temp 36.4 C 01/11/25 10:27 Pulse 74 01/11/25 10:27 Resp 18 01/11/25 10:27 BP 124/75 01/11/25 10:27 Pulse Ox 95 01/11/25 10:27 O2 Del Method Room Air 01/11/25 10:27 Allergies Allergy/AdvReac Type Severity Reaction Status Date / Time No Known Allergies Allergy Verified 01/11/25 10:25 Home Medications ?Medication ?Instructions ?Recorded ?Confirmed ?Type amlodipine 5 mg-benazepril 20 mg 2 cap PO DAILY 10/16/21 01/11/25 History capsule atorvastatin 40 mg tablet 40 mg PO DAILY 10/16/21 01/11/25 History lorazepam 0.5 mg tablet (Ativan) 0.5 mg PO BID PRN anxiety #7 tabs 04/19/24 01/07/25 Rx hydrochlorothiazide 25 mg tablet 12.5 mg PO DAILY 10/11/24 01/11/25 History cyclobenzaprine 10 mg tablet 10 mg PO TID PRN muscle spasm #20 10/23/24 01/07/25 Rx tabs Patient hx anesthesia problems: none Family hx anesthesia problems: none Results Review: All pre-operative results and documents have been reviewed as part of the pre- operative evaluation. [facility] Past Medical History Medical History History of sleep apnea Mixed hyperlipidemia Essential (primary) hypertension Family History Family History Mother Patient's mother is in good health Family history of pulmonary embolism Father Patient's father is in good health Social History Social History Smoking packs per day: 1.5 Smoking cigarettes per day: 30.0 Smoking status: Current every day smoker Tobacco type: cigarettes Alcohol intake: never Substance use: never Substance use type: does not use Living arrangements: with family Spiritual care concerns: No Anes - Eval Final PreProcedure Day of Procedure 01/11/25 10:32 Patient weight: obese Heart: regular rate and rhythm Lungs: decreased breath sounds Airway: Mallampati scale class II Neurological: alert and oriented Last oral intake: >/= 8 hours ASA classification: III Emergent: no Anesthetic plan: proceed Anesthesia type and monitoring: general GIVS and standard monitoring Results Review: All pre-operative results and documents have been reviewed as part of the pre- operative evaluation. Informed Consent: The patient's anesthetic plan and its attendant risks and benefits were discussed with the patient/family/POA. Questions were solicited and answers provided to the satisfaction of the patient/family/POA.
[2025-01-11] MEDS: LACTATED RINGERS 1,000 ML 150 ML IV CONT (10:39)
--- NOTE | 2025-01-11 11:26 | PM.HPGS ---
History of Present Illness History of Present Illness Consent: Risks, benefits, and alternatives have been discussed and questions answered. Patient agrees to proceed with procedure. Chief complaint: Diarrhea, unspecified Narrative: Finn Mendoza is a 59 year old male here for colonoscopy, [address] scan that showed possible thickening of colon. Review of Systems Review of Systems: All systems reviewed & are unremarkable except as noted in HPI and below PMFSH Past Medical History Medical History (Updated 01/11/25 @ 11:27 by Lucian Gerber MD) Abnormal CT scan, colon History of sleep apnea Mixed hyperlipidemia Essential (primary) hypertension Family History Family History Mother Patient's mother is in good health Family history of pulmonary embolism Father Patient's father is in good health Social History Social History Smoking packs per day: 1.5 Smoking cigarettes per day: 30.0 Smoking status: Current every day smoker Tobacco type: cigarettes Alcohol intake: never Substance use: never Substance use type: does not use Living arrangements: with family Spiritual care concerns: No Meds Home Medications and Allergies Home Medications ?Medication ?Instructions ?Recorded ?Confirmed ?Type amlodipine 5 mg-benazepril 20 mg 2 cap PO DAILY 10/16/21 01/11/25 History capsule atorvastatin 40 mg tablet 40 mg PO DAILY 10/16/21 01/11/25 History lorazepam 0.5 mg tablet (Ativan) 0.5 mg PO BID PRN anxiety #7 tabs 04/19/24 01/07/25 Rx hydrochlorothiazide 25 mg tablet 12.5 mg PO DAILY 10/11/24 01/11/25 History cyclobenzaprine 10 mg tablet 10 mg PO TID PRN muscle spasm #20 10/23/24 01/07/25 Rx tabs Allergies Allergy/AdvReac Type Severity Reaction Status Date / Time No Known Allergies Allergy Verified 01/11/25 10:25 Vital Signs Vital Signs - 24 hr 01/11/25 10:27 Temperature 97.6 F Pulse Rate 74 Respiratory Rate 18 Blood Pressure 124/75 Pulse Oximetry 95 Oxygen Delivery Room Air Exam Const: General: comfortable and no acute distress HENMT: Face/Nose/Sinus: Normal nares present Eyes: General: appearance normal, both eyes and all related structures Neck: Neck: no JVD Resp: Auscultation: clear to auscultation bilaterally Cardio: Rate: regular rate Rhythm: regular rhythm GI: Inspection: non-distended GI Palp: Yes Soft to palpation Skin: General skin exam: normal color Neuro: Speech: normal speech Extrem: General: normal to inspection Psych: Mental Status: mental status grossly normal Assessment and Plan Assessment and plan (1) Abnormal CT scan, colon: Code(s): R93.3 - Abnormal findings on diagnostic imaging of other parts of digestive tract Status: Acute Assessment and Plan: colonoscopy
--- NOTE | 2025-01-11 11:37 | S_PTH ---
PATIENT: Finn Mendoza LOC: [facility] Bob#:[id number] AGE/SX: 59/M ROOM: RE01/11/[address]: Lucian Gerber MD : 1965 BED: DIS: 01/11/2025 SPEC #: [id number] RECD: 01/11/25 12:58 STATUS: SHAJI REQ #: [id number] DANIEL: 01/11/25 11:[address]: Lucian Gerber DEPT: [facility] Surgical RECD BY: Maria E Nice ENTERED: 01/11/25 12:58 SP TYPE: Surgical OTHR DR: Scooby Zambrano MD Tissues: A - Colon Polypectomy Procedures: Hematoxylin and Eosin Stain Gross and Microscopic Level 4
[2025-01-11 11:40] VITALS: BP 93/58; PULSE 63; RESP 30; O2SAT 94
[2025-01-11 11:50] VITALS: BP 95/65; PULSE 61; RESP 22; O2SAT 98
[2025-01-11 12:00] VITALS: BP 117/78; PULSE 62; RESP 22; O2SAT 98
== END 2025-01-11 12:15 | disposition home or self-care (01) ==
PROVIDERS: PCP Family Medicine; Visit Provider Internal Medicine Gastroenterology
PROC: 0DJD8ZZ Inspection of Lower Intestinal Tract, Via Natural or Artificial Opening Endoscopic (ICD-10-PCS; CPT 45378; principal; 2025-01-11 11:30)
DX: R93.3 Abnormal findings on diagnostic imaging of other parts of digestive tract (principal); K63.5 Polyp of colon; K64.8 Other hemorrhoids; K57.30 Diverticulosis of large intestine without perforation or abscess without bleeding; I10 Essential (primary) hypertension; E78.2 Mixed hyperlipidemia; G47.30 Sleep apnea, unspecified; F17.210 Nicotine dependence, cigarettes, uncomplicated; E66.9 Obesity, unspecified; Z68.31 Body mass index [BMI] 31.0-31.9, adult
CPT/HCPCS: 45385; 88305; J7120

== ENCOUNTER 2025-03-07 13:27 | Emergency (ER) | payer OTHER, SELFPAY ==
--- NOTE | ~2025-03-07 | XR_ITS ---
XR hip LT 2V w AP pelvis 03/07/2025 14:25 Indication: Left hip pain Procedure: AP pelvis and 2 views left hip Comparison: No prior studies for comparison. Findings: There is mild osteoarthritis of the hips. No fracture, subluxation or dislocation. No significant soft tissue abnormality. No foreign bodies. Pelvic rings intact. Impression: 1: Mild osteoarthritis of the hips. Reviewed, dictated and finalized at location O. Impression: 1: Mild osteoarthritis of the hips.
[2025-03-07 13:49] VITALS: BP 122/73; PULSE 78; RESP 16; TEMP 36.8; O2SAT 98
--- NOTE | 2025-03-07 14:54 | ED.GENADULT ---
HPI - General Adult General Chief complaint: Extremity Problem,Nontraumatic Stated complaint: Left Hip pain Time Seen by Provider: 03/07/25 14:01 History of Present Illness HPI narrative: 59-year-old male presents to the emergency department for evaluation for left hip pain. Patient suspects he injured his left hip sitting cross-legged for an extended period of time. Patient denies any falls or injuries. Patient reports that the pain left hip is a dull ache that does radiate to his left buttock. Patient denies any radiation the pain down leg. Patient denies any associated numbness or weakness. Patient states he does not need crutches to ambulate. Related Data Home Medications ?Medication ?Instructions ?Recorded ?Confirmed ?Last Taken ?Type amlodipine 5 mg-benazepril 20 mg 2 cap PO DAILY 10/16/21 01/11/25 01/11/25 History capsule atorvastatin 40 mg tablet 40 mg PO DAILY 10/16/21 01/11/25 01/10/25 History hydrochlorothiazide 25 mg tablet 12.5 mg PO DAILY 10/11/24 01/11/25 01/11/25 History Allergies Allergy/AdvReac Type Severity Reaction Status Date / Time No Known Allergies Allergy Verified 03/07/25 13:27 Review of Systems Review of Systems: All systems reviewed & are unremarkable except as noted in HPI and below PMFSH Past Medical History Medical History (Updated 03/07/25 @ 14:57 by Tyrone Jean Baptiste MD) Abnormal CT scan, colon History of sleep apnea Mixed hyperlipidemia Essential (primary) hypertension Family History Family History Mother Patient's mother is in good health Family history of pulmonary embolism Father Patient's father is in good health Social History Social History Smoking packs per day: 1.5 Smoking cigarettes per day: 30.0 Smoking status: Current every day smoker Tobacco type: cigarettes Alcohol intake: never Substance use: never Substance use type: does not use Living arrangements: with family Spiritual care concerns: No Exam Narrative: APPEARANCE: Well appearing, no pain, no distress, well-nourished. HEAD: normocephalic, atraumatic. EYES: PERRLA/EOMI, conjunctivae clear. NOSE: Normal no drainage EARS:TMS clear with good light reflex. THROAT: Pharynx clear, no exudate. NECK: Supple. No adenopathy, no masses. RESPIRATORY: Airway patent, respirations nonlabored. Clear to auscultation bilaterally, no rales, rhonchi, wheezing. CARDIOVASCULAR: Regular rate and rhythm without murmurs rubs or gallops. ABDOMINAL: Soft, nontender, nondistended, normal bowel sounds MUSCULOSKELETAL: Tenderness to left buttock with no evidence of overlying rash NEURO: Alert. Cranial nerves II through XII intact. Good gait. Good coordination SKIN: Warm, dry. Normal Color PSYCHIATRIC: Normal affect/mood. Course Vital Signs Vital signs: Vital Signs Temperature 98.2 F 03/07/25 13:49 Pulse Rate 78 03/07/25 13:49 Respiratory Rate 16 03/07/25 13:49 Blood Pressure 122/73 03/07/25 13:49 Pulse Oximetry 98 03/07/25 13:49 Oxygen Delivery Room Air 03/07/25 13:49 Temperature 98.2 F 03/07/25 13:49 Pulse Rate 63 03/07/25 15:25 Respiratory Rate 18 03/07/25 15:25 Blood Pressure 127/77 03/07/25 15:25 Pulse Oximetry 96 03/07/25 15:25 Oxygen Delivery Room Air 03/07/25 13:49 Medical Decision Making MDM Narrative Medical decision making narrative: 59-year-old male presents to the emergency department for evaluation for left hip pain. X-rays were negative for acute fracture dislocation. Suspect muscular strain versus sciatica. Patient will be started on Medrol Dosepak provided Flexeril for pain control. All questions concerns were addressed patient was comfortable plan for discharge and close follow-up Differential Diagnosis Differential Diagnosis: Hip strain, sciatica, fracture, dislocation Vital Signs Vital Signs: Vital Signs Temperature 98.2 F 03/07/25 13:49 Pulse Rate 78 03/07/25 13:49 Respiratory Rate 16 03/07/25 13:49 Blood Pressure 122/73 03/07/25 13:49 Pulse Oximetry 98 03/07/25 13:49 Oxygen Delivery Room Air 03/07/25 13:49 Temperature 98.2 F 03/07/25 13:49 Pulse Rate 63 03/07/25 15:25 Respiratory Rate 18 03/07/25 15:25 Blood Pressure 127/77 03/07/25 15:25 Pulse Oximetry 96 03/07/25 15:25 Oxygen Delivery Room Air 03/07/25 13:49 Imaging Data My impression: X-ray hip: No acute fracture dislocation Radiologist's impression: Impressions Hip/Pelvis X-Ray 03/07/25 14:26 Impression: 1: Mild osteoarthritis of the hips. Discharge Plan Discharge Clinical Impression: Strain of left hip Patient Disposition: Home Condition: Stable Instructions: Antibiotic Form, Hip Pain (ED) Additional Instructions: Tylenol for pain control. Medrol Dosepak as directed until completed. Flexeril as needed for muscle spasm. Have close follow-up with your primary care physician. If you have any worsening symptoms then please call or return to the emergency department. Patient Language: Swedish Prescriptions: New cyclobenzaprine 10 mg tablet 10 mg PO BID PRN (Reason: muscle spasm) Qty: 14 0RF methylprednisolone [Medrol (Clint)] 4 mg tablets,dose pack See Rx Instructions .ROUTE .COMPLEX Qty: 21 0RF Rx Instructions: for 6 days No Action hydrochlorothiazide 25 mg tablet 12.5 mg PO DAILY atorvastatin 40 mg tablet 40 mg PO DAILY amlodipine-benazepril 5-20 mg capsule 2 cap PO DAILY cyclobenzaprine 10 mg tablet 10 mg PO TID PRN (Reason: muscle spasm) Qty: 20 0RF lorazepam [Ativan] 0.5 mg tablet 0.5 mg PO BID PRN (Reason: anxiety) Qty: 7 0RF Follow-up/Referrals: Scooby Zambrano MD [Primary Care Provider, Family Practice]
[2025-03-07] MEDS: dexAMETHasone SOD PHOS INJ 10 MG/ML 1 ML VIAL IM (15:24)
[2025-03-07] MEDS: KETOROLAC 30 MG/ML VIAL (*BKC) IM (15:24)
[2025-03-07] MEDS: CYCLOBENZAPRINE HCL 10 MG TABLET PO (15:24)
[2025-03-07 15:25] VITALS: BP 127/77; PULSE 63; RESP 18; O2SAT 96
--- OUTSIDE RECORDS SUMMARY | 2025-03-07 16:14 | XMS_ITS | Clinical Summary ---
Author Organization [facility] Address [address] [place] [address] Care Team Providers Care Director Of Aviation Name Role Phone Unavailable Primary Care Provider Unavailabl e Source Comments [facility] [employer],non-owned Affiliates and Associated Physician Practices is amultiple site organization consisting of ambulatory clinics and hospital sitesin [place], [place], [place] and [place]. This disclosure is being madepursuant to the Care Everywhere program and may not contain all information available regarding this patient. Last updated 18.[facility] Allergies No known active allergies Medications * [...] on file Legal Sex Male 11:43 AM GRINDING ROOM SUPERVISOR Gender Identity Not on file Sexual Orientation Not on file Last Filed Vital Signs Vital Sign Reading Time Taken Comments Blood Pressure 136/88 04/20/2017 2:09 PM GRINDING ROOM SUPERVISOR Pulse 85 04/20/2017 2:09 PM GRINDING ROOM SUPERVISOR Temperature 36.9 C (98.4 F) 04/20/2017 2:09 PM GRINDING ROOM SUPERVISOR Respiratory Rate 16 04/20/2017 2:09 PM GRINDING ROOM SUPERVISOR Oxygen Saturation 97% 04/20/2017 2:09 PM GRINDING ROOM SUPERVISOR Inhaled Oxygen Concentration - - Weight 131.5 kg (290 lb) 04/20/2017 2:09 PM GRINDING ROOM SUPERVISOR Height 182.9 cm (6') 04/20/2017 2:09 PM GRINDING ROOM SUPERVISOR Body Mass Index 39.33 04/20/2017 2:09 PM GRINDING ROOM SUPERVISOR Plan of Treatment Health Maintenance Due Date [...] series) 1984 PNEUMOCOCCAL VACCINE 50+ (1 of 2 - PCV) 1984 ZOSTER VACCINE (1 of 2) 2015 SCREENING FOR DIABETES 04/20/2017 DEPRESSION SCREENING 06/13/2024 COVID-19 VACCINE (1 - 2023-2 5 season) 2025 INFLUENZA VACCINE (#1) 2025 HIB VACCINE Aged [...] age to complete this topic Insurance [employer] [facility] SELF PAY NO INSURANCE Member Subscriber Plan / Payer (Ef fective for All Dates) Name:Héctor Head Member ID:Not on file Relation to Subscriber:Not on file Name:HÉCTOR HEAD Subscriber ID:Not on file (Home) Address: [address] [place] [address] [place] [address] Payer ID:Not on file Group ID:Not on file Type:Self Pay Address: [place], [place]
--- OUTSIDE RECORDS SUMMARY | 2025-03-07 16:47 | XMS_ITS | Clinical Summary ---
Author Organization [facility] Address [address] [place] [address] Care Team Providers Care Chief Controller Station Name Role Phone Unavailable Primary Care Provider Unavailabl e Source Comments [facility] [employer],non-owned Affiliates and Associated Physician Practices is amultiple site organization consisting of ambulatory clinics and hospital sitesin [place], [place], [place] and [place]. This disclosure is being madepursuant to the Care Everywhere program and may not contain all information available regarding this patient. Last updated 18.[facility] Allergies No known active allergies Medications * [...] on file Legal Sex Male 11:43 AM NURSE WOUND Gender Identity Not on file Sexual Orientation Not on file Last Filed Vital Signs Vital Sign Reading Time Taken Comments Blood Pressure 136/88 04/20/2017 2:09 PM NURSE WOUND Pulse 85 04/20/2017 2:09 PM NURSE WOUND Temperature 36.9 C (98.4 F) 04/20/2017 2:09 PM NURSE WOUND Respiratory Rate 16 04/20/2017 2:09 PM NURSE WOUND Oxygen Saturation 97% 04/20/2017 2:09 PM NURSE WOUND Inhaled Oxygen Concentration - - Weight 131.5 kg (290 lb) 04/20/2017 2:09 PM NURSE WOUND Height 182.9 cm (6') 04/20/2017 2:09 PM NURSE WOUND Body Mass Index 39.33 04/20/2017 2:09 PM NURSE WOUND Plan of Treatment Health Maintenance Due Date [...] age to complete this topic Insurance [employer] [facility] SELF PAY NO INSURANCE Member Subscriber Plan / Payer (Ef fective for All Dates) Name:Héctor Head Member ID:Not on file Relation to Subscriber:Not on file Name:HÉCTOR HEAD Subscriber ID:Not on file (Home) Address: [address] [place] [address] [place] [address] Payer ID:Not on file Group ID:Not on file Type:Self Pay Address: [place], [place]
== END 2025-03-07 15:27 | disposition home or self-care (01) ==
PROVIDERS: Emergency Provider Emergency Medicine; PCP Family Medicine
DX: S76.012A Strain of muscle, fascia and tendon of left hip, initial encounter (principal); X50.0XXA Overexertion from strenuous movement or load, initial encounter; F17.210 Nicotine dependence, cigarettes, uncomplicated
CPT/HCPCS: 73502; 96372; 99284; A9270; J1100; J1885

== ENCOUNTER 2025-05-06 08:40 | Emergency (ER) | payer OTHER, SELFPAY ==
[2025-05-06] VITALS (22 sets, daily range): BP systolic 129–145; BP diastolic 72–84; PULSE 62–92; RESP 13–20; TEMP 36.5; O2SAT 90–99
--- NOTE | ~2025-05-06 | CT_ITS ---
CTA CHEST ABDOMEN PELVIS CLINICAL HISTORY: Left-sided chest pain, history of enlarged aorta . COMPARISON: Chest x-ray 05/06/2025 TECHNIQUE: Helical CT performed from thoracic inlet to symphysis pubis IV contrast information not listed in PACS Coronal, sagittal reformats. Multiplanar MIPS CT images acquired with automatic exposure control for dose reduction DLP: 1684 mGy-cm FINDINGS: CHEST- Thoracic Aorta: No dissection. No aneurysm. Atherosclerotic disease. Pulmonary arteries: Normal caliber. Lungs/Pleura: Clear. Heart: Unremarkable. Coronary artery calcification. Tracheobronchial tree: Patent. Nodes: No enlarged nodes. Bones: No acute bony abnormality. Soft tissues: Unremarkable. ABDOMEN/PELVIS- CTA Abdominal aorta: Minimal fusiform aneurysmal dilatation below renal arteries at 3.2 cm. Atherosclerotic disease. Common iliac arteries: Atherosclerotic disease but patent without stenosis.. External iliac arteries: Patent. Hypogastric arteries: Patent. CFAs: Patent. Proximal visualized SFAs and profundas: Patent. Celiac: Patent. SMA: Patent. ZIYAD: Patent. Renal arteries: Patent. NON-CTA Liver: Enlarged. Steatosis. Gallbladder: Unremarkable. Spleen: Unremarkable. Pancreas: Unremarkable. Adrenal glands: Unremarkable. Kidneys: Right kidney- No hydronephrosis. No renal stones. Left kidney- No hydronephrosis. No renal stones. Distal esophagus/stomach: Minimal distal esophageal wall thickening/esophagitis. Small bowel loops: Normal caliber and wall thickness. Colon: Diverticula. Diffuse sigmoid wall thickening. Normal RLQ appendix. Nodes: No enlarged nodes. Peritoneum: No ascites. No free air. Urinary bladder: Unremarkable. Prostate: Unremarkable. Bones: No acute bony abnormality. Soft tissues: Unremarkable. IMPRESSION: CHEST- 1. No acute cardiopulmonary findings. ABDOMEN/PELVIS- 1. No acute abdominopelvic findings. 2. Sigmoid colon wall thickening likely chronic diverticular disease but recommend colonoscopy to exclude lesion. 3. Infrarenal abdominal aorta 3.2 cm, barely aneurysmal. Recommend surveillance ultrasound or CT in 3 years. Reviewed, dictated and finalized at location R. NGUAL LOAN PROCESSOR IMPRESSION: CHEST- 1. No acute cardiopulmonary findings. ABDOMEN/PELVIS- 1. No acute abdominopelvic findings. 2. Sigmoid colon wall thickening likely chronic diverticular disease but recom mend colonoscopy to exclude lesion. 3. Infrarenal abdominal aorta 3.2 cm, barely aneurysmal. Recommend surveillanc e ultrasound or CT in 3 years.
--- NOTE | ~2025-05-06 | XR_ITS ---
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 Technique: 2 views obtained. Findings: The lungs are clear, no effusion. No pneumothorax. Heart is normal size. Mediastinal and hilar contours are within normal limits. Bony thorax no acute abnormality. Impression: No acute cardiopulmonary abnormality. Reviewed, dictated and finalized at location P. TING MACHINE OPERATOR Impression: No acute cardiopulmonary abnormality.
--- NOTE | 2025-05-06 08:42 | ECG_ITS ---
Test Date: 2025-05-06 08:45:59 Measurements Intervals [place] Rate: 72 P: 68 CT: 176 QRS: 64 QRSD: 100 T: 55 QT: 389 QTc: 426 Interpretive Statements SINUS RHYTHM POSSIBLE LEFT ATRIAL ENLARGEMENT [-0.1mV P-WAVE IN V1/V2] SEPTAL MYOCARDIAL INFARCTION , OF INDETERMINATE AGE [40+ ms Q WAVE IN V1/V2] ABNORMAL ECG Compared to ECG 10/09/2024 08:48:23 Myocardial infarct finding now present Electronically Signed On 05-06-2025 13:52:48 PROGRAM COUNSELOR by Ritchie Blount M.D.
--- OUTSIDE RECORDS SUMMARY | 2025-05-06 08:59 | XMS_ITS | Clinical Summary ---
Author Organization [facility] Address [facility] [place] [address] Care Team Providers Care Patient Support Representative Name Role Phone Romulo Wynn MD Unavailable [phone] Tian Taveras MD Primary Care Provider [phone] Allergies No known active allergies Medications hydrOXYzine (ATARAX) 25 MG tabletIndications:A nxiety Take 1 tablet (25 mg total) by mouth daily as needed. 90 tablet 1 5 Active gabapentin (NEURONTIN) 300 MG capsuleIndications: Foot pain, right Take 1 capsule (300 mg total) by mouth nightly at bedtime. 30 capsule 5 Active DULoxetine (CYMBALTA) 30 MG capsuleIndications: Anxiety associated with depression Take 2 capsules (60 mg total) by mouth daily. 120 capsule 5 Active LORazepam (ATIVAN) 0.5 MG tabletIndications:A nxiety associated with depression Take 1 tablet (0.5 mg total) by mouth daily as needed for Anxiety. 15 tablet 5 Active hydroCHLOROthiazide (HYDRODIURIL) 25 MG tabletIndications:P rimary hypertension TAKE 1 TABLET BY MOUTH EVERY DAY IN THE MORNING 30 tablet 1 5 Active atorvastatin (LIPITOR) 40 MG tabletIndications:O ther hyperlipidemia Take 1 tablet (40 mg total) by mouth daily. Needs to see PCP if needs future refill 30 tablet 5 Active amLODIPine-benazepr il (LOTREL) 5-20 MG capsuleIndications: Primary hypertension Take 2 capsules by mouth daily. Follow-up with PCP if needs future refill 60 capsule 5 Active Active Problems Problem Noted Date Diagnosed Date [...] (05/20/2022): Added automatically from request for surgery [id number] Diarrhea, unspecified type 05/20/2022 0 01/12/2023 Overview (05/20/2022): Added automatically from request for surgery [id number] Left ear pain 09/23/2021 01/12/2023 Encounter for screening for malignant neoplasm of colon 03/26/2019 01/12/2023 Overview (03/26/2019): Added automatically from request for surgery [id number] BMI 40.0-44.9, adult 12/06/2018 023 Acute recurrent maxillary sinusitis 12/06/2018 01/12/2023 Screening for colon cancer 04/04/2018 0 06/30/2018 Neck pain, acute 11/15/2017 06/30/2018 Snoring 08/09/2017 06/30/2018 Acute bronchitis, unspecified organism 05/31/2017 06/30/2018 Chest discomfort 06/30/2018 Encounters Date Type Department Care Team Description 03/26/2025 Rosa Message Enc [facility] Medical [facility] Family & Internal Medicine [facility] [id number] [place] [address] Rosa, [facility] Provider medication refill / appointment from Last 3 Months Immunizations Immunization Administration [...] Date Smoking Tobacco: Every Day Cigarettes 0.5 36.9 Started: 1988 Smokeless Tobacco: Never Tobacco Cessation:Ready to Q uit: No; Counseling Given: Yes Comments:advised to stop Alcohol Use Standard Drinks/Week Comments No 0 (1 standard drink = 0.6 oz pur e alcohol) PHQ-2 Answer Date Recorded Patient Health Questionnaire-2 Score 0 08/06/2024 Sex and Gender Information Value Date Recorded Sex Assigned at Male 08/06/2024 3:05 PM CRANE RIGGER Legal Sex Male 3:29 PM CRANE RIGGER Gender Identity Male 08/06/2024 3:05 PM CRANE RIGGER Sexual Orientation Straight 08/06/2024 3: 05 PM CRANE RIGGER 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 Not on file Last Filed Vital Signs Vital Sign Reading Time Taken Comments Blood Pressure 132/82 08/06/2024 2:59 PM CRANE RIGGER Pulse 74 08/06/2024 2:59 PM CRANE RIGGER Temperature 36.6 C (97.9 F) 08/06/2024 2:59 PM CRANE RIGGER Respiratory Rate 16 08/06/2024 2:59 PM CRANE RIGGER Oxygen Saturation 97% 08/06/2024 2:59 PM CRANE RIGGER Inhaled Oxygen Concentration - - Weight 117 kg (258 lb) 08/06/2024 2:59 PM CRANE RIGGER Height 180.3 cm (5' 11) 08/06/2024 2:59 PM CRANE RIGGER Body Mass Index 35.98 08/06/2024 2:59 PM CRANE RIGGER Plan of Treatment Health Maintenance Due Date Last Done Comments Zoster Vaccines (1 of 2) 2015 Annual Physical 01/13/2024 01/12/2023 COVID-19 Vaccine ( season) 2025 05/01/2024, 03/24/2022, 04/20/2021, Additional history exists Influenza Adult (#1) 2025 05/01/2024, 03/24/2022, 04/13/2021, Additional history exists Colorectal Cancer Screening Colonoscopy (10 Years) 08/06/2032 08/06/2022, 04/18/2019 DTaP, Tdap and Td Vaccines (2 - Td or Tdap) 01/12/2033 01/12/2023 Hepatitis C 01/12/2053 Postponed from 1983 (Patient Refused) Pneumococcal Vaccine: 50+ Years Completed 01/12/2023 PHQ-2 (Physician [place]) Completed 08/06/2024 Hepatitis A Vaccines Aged Out No long er eligible based on patient's age to complete this topic Meningococcal B Vaccine Aged Out No l onger eligible based on patient's age to complete this topic Meningococcal Vaccine Aged Out No cr eugenio eligible based on patient's age to complete this topic RSV Immunizations Under 20 Months Aged Out No longer eligible based on patient's age to complete this topic Insurance U[employer] Care Teams Patient Support Representative Relationship Specialty [place] [address] [address] PCP - General INTERNAL MEDICINE 01/04/24 Romulo Wynn MD [facility]. [facility] [address] [place] [address] Ossian Roving Can Tender CARDIOVASCULAR DISEASE 08/19/17
--- OUTSIDE RECORDS SUMMARY | 2025-05-06 08:59 | XMS_ITS | Encounter Summary ---
Author Organization [facility] Address [address] [place] [address] Care Team Providers Care Integration Assistant Name Role Phone SeverianoFracisco nugentsalma DUPREE Primary Care Provider UnaRomulo Glover MD Unavailable [phone] Shilpa Savage NP Primary Care Provider UnavaNatasha Coleman Primary Care Provider [phone] New Referring, Provider Primary Care Provider Un available Natasha Arreola Primary Care Provider [phone] Dianna Blackman NP Primary Care Provider [phone] Kaden Lord NP Primary Care Provide r Tian Taveras MD Primary Care Provider [phone] Encounter Details Date Type Department Care Team (Late st Contact Info) Description 08/26/2017 Abstract [facility] at [address] [address] Nga Cruz MA Social History Tobacco Use Types Packs/Day Years Used Date Smoking Tobacco: Every Day Cigarettes 1 36.9 Started: 1988 Alcohol Use Standard Drinks/Week Comments No 0 (1 standard drink = 0.6 oz pur e alcohol) Sex and Gender Information Value Date Recorded Sex Assigned at Male 08/06/2024 3:05 PM CLIENT SERVICE REPRESENTATIVE Legal Sex Male 3:29 PM CLIENT SERVICE REPRESENTATIVE Gender Identity Male 08/06/2024 3:05 PM CLIENT SERVICE REPRESENTATIVE Sexual Orientation Straight 08/06/2024 3: 05 PM CLIENT SERVICE REPRESENTATIVE Occupation Industry Job Start Date Job End [...] Result * LIPID PANEL (06/09/2017) Pathologist [facility] CHOLESTEROL 236 HDL 38 TRIGLYCERIDES 140 LDL [...] on filedocumented in this encounter Care Teams Integration Assistant Relationship Specialty Start Date End Date Moriah العلي APNP PCP - General COMMUNITY OUTREACH ADVOCATE 08/11/17 06/28/18 Shilpa Savage NP [address] [address] PCP - General Nurse Practitioner Family 06/29/18 07/25/19 [place] [address] [place] [address] PCP - General PHYSICIAN SLIP FEEDER 07/26/19 09/30/19 [facility], Provider [address] [place] [address] PCP - General UNKNOWN PHYSICIAN SPECIALTY 10/01/19 10/29/19 [place] [address] [place] [address] PCP - General PHYSICIAN SLIP FEEDER 10/30/19 12/08/22 [place] [address] [facility] Caredaniel Gibson, [address] [address] PCP - General Nurse Practitioner Family 12/09/22 08/22/23 Kaden Lord, [place] [address] [address], [address] [place] [address] PCP - General NURSE PRACTITIONER ADULT HEALTH 08/23/23 01/03/24 [place] [address] [address] PCP - General INTERNAL MEDICINE 01/04/24 Romulo Wynn MD [facility]. [address] [address] Stollings Digital Account Supervisor CARDIOVASCULAR DISEASE 08/19/17 documented as of this encounter
--- OUTSIDE RECORDS SUMMARY | 2025-05-06 08:59 | XMS_ITS | Encounter Summary ---
Author Organization [facility] Address [address] [place] [address] Care Team Providers Care Line Operator Name Role Phone Romulo Wynn MD Unavailable [phone] Tian Taveras MD Primary Care Provider [phone] Encounter Details Date Type Department Care Team (Late st Contact Info) Description 03/26/2025 [employer] Message [facility] Family & Internal Medicine [address] [address] [place], [facility] Provider medication refill / appointment Social History Tobacco Use Types Packs/Day Years Used Date Smoking Tobacco: Every Day Cigarettes 0.5 36.9 Started: 1988 Smokeless Tobacco: Never Comments:advised to stop Alcohol Use Standard Drinks/Week Comments No 0 (1 standard drink = 0.6 oz pur e alcohol) PHQ-2 Answer Date Recorded Patient Health Questionnaire-2 Score 0 08/06/2024 Sex and Gender Information Value Date Recorded Sex Assigned at Male 08/06/2024 3:05 PM DRY FINISHER Legal Sex Male 3:29 PM DRY FINISHER Gender Identity Male 08/06/2024 3:05 PM DRY FINISHER Sexual Orientation Straight 08/06/2024 3: 05 PM DRY FINISHER 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 [facility] [address] [place] [address] [employer] Laboratory Assistant CARDIOVASCULAR DISEASE 08/19/17 documented as of this encounter
--- OUTSIDE RECORDS SUMMARY | 2025-05-06 08:59 | XMS_ITS | Clinical Summary ---
Author Organization [facility] Address [address] [place] [address] Care Team Providers Care Mold Polisher Name Role Phone Unavailable Primary Care Provider Unavailabl e Source Comments [facility],non-owned Affiliates and Associated Physician Practices is amultiple site organization consisting of ambulatory clinics and hospital sitesin [place], [place], [place] and [place]. This disclosure is being madepursuant to the Care Everywhere program and may not contain all information available regarding this patient. Last updated 18.[facility] Allergies No known active allergies Medications * [...] on file Legal Sex Male 11:43 AM BILLING SERVICES MANAGER Gender Identity Not on file Sexual Orientation Not on file Last Filed Vital Signs Vital Sign Reading Time Taken Comments Blood Pressure 136/88 04/20/2017 2:09 PM BILLING SERVICES MANAGER Pulse 85 04/20/2017 2:09 PM BILLING SERVICES MANAGER Temperature 36.9 C (98.4 F) 04/20/2017 2:09 PM BILLING SERVICES MANAGER Respiratory Rate 16 04/20/2017 2:09 PM BILLING SERVICES MANAGER Oxygen Saturation 97% 04/20/2017 2:09 PM BILLING SERVICES MANAGER Inhaled Oxygen Concentration - - Weight 131.5 kg (290 lb) 04/20/2017 2:09 PM BILLING SERVICES MANAGER Height 182.9 cm (6') 04/20/2017 2:09 PM BILLING SERVICES MANAGER Body Mass Index 39.33 04/20/2017 2:09 PM BILLING SERVICES MANAGER Plan of Treatment Health Maintenance Due Date [...] DEPRESSION SCREENING 06/13/2024 COVID-19 VACCINE (1 - 2024-2 6 season) 2025 INFLUENZA VACCINE (#1) 2025 HIB [...] patient's age [place] [address] [facility] SELF PAY NO INSURANCE Member Subscriber Plan / Payer (Ef fective for All Dates) Name:Héctor Head Member ID:Not on file Relation to Subscriber:Not on file Name:HÉCTOR HEAD Subscriber ID:Not on file (Home) Address: [address] [place] [address] [place] [address] Payer ID:Not on file Group ID:Not on file Type:Self Pay Address: [place], [place]
--- OUTSIDE RECORDS SUMMARY | 2025-05-06 08:59 | XMS_ITS | Clinical Summary ---
Author Organization [facility] [address] Address [address] [place] [address] Care Team Providers Care Animal Nutrition Teacher Name Role Phone Unknown, Notinfile Primary Care Provider Unavail able Allergies No known active allergies Medications amLODIPine-vy zepriL (LOTREL 5-20) 5-20 mg per capsule Take 2 capsules by mouth 10/16/2021 Active atorvastatin (LIPITOR) 40 mg tablet Take 1 tablet (40 mg total) by mouth 10/16/2021 Active hydroCHLOROthia zide (HYDRODIURIL) 25 mg tablet Take 0.5 tablets (12.5 mg total) by mouth 10/11/2024 Active Active Problems No known active problems Encounters Date Type Department Care Team Description 03/26/2025 2:30 PM CDT Office Visit [facility] Convenient Care at [address] [address] Cyn Singh NP Allergic conjunctivitis of both eyes (Primary Dx) from Last 3 Months Social History Tobacco Use Types Packs/Day Years Used Date Smoking Tobacco: Never Assessed Sex and Gender Information Value Date Recorded Sex Assigned at Not on file Legal Sex Male 1:56 PM CDT Gender Identity Not on file Sexual Orientation Not on file Last Filed Vital Signs Vital Sign Reading Time Taken Comments Blood Pressure 143/78 03/26/2025 2:02 PM CDT Pulse 78 03/26/2025 2:02 PM CDT Temperature 36.6 C (97.9 F) 03/26/2025 2:02 PM CDT Respiratory Rate 18 03/26/2025 2:02 PM CDT Oxygen Saturation 97% 03/26/2025 2:02 PM CDT Inhaled Oxygen Concentration - - Weight 114.8 kg (253 lb) 03/26/2025 2:02 PM CDT Height - - Body Mass Index - - Plan of Treatment Health Maintenance Due Date Last Done Comments Colon Cancer Screening-Colonoscopy 1965 Depression Screening 1965 Hepatitis C Screening 1965 Prostate Cancer Screening-PSA 1965 Hepatitis B Screening 1983 Regular Well Visit/Exam 18-64 1983 Zoster Vaccine (1 of 2) 2015 Covid-19 Vaccine ( season) 2025 05/01/2024, 03/24/2022, 04/20/2021, Additional history exists Influenza Vaccine (#1) 2025 4, 03/24/2022, 04/13/2021, Additional history exists DTaP/Tdap/Td Vaccine (2 - Td or Tdap) 01/12/2033 01/12/2023 Pneumococcal vaccine <65 Aged Out 01/12/2023 No longer eligible based on patient's age to complete this topic Care Teams Animal Nutrition Teacher Relationship Specialty Start Date End Date Unknown, Notinfile PCP - General 03/26/25
--- OUTSIDE RECORDS SUMMARY | 2025-05-06 08:59 | XMS_ITS | Encounter Summary ---
Author Organization [facility] Address [address] [place] [address] Care Team Providers Care Photogrammetric Engineer Name Role Phone Romulo Wynn MD Unavailable [phone] Dianna Blackman NP Primary Care Provider [phone] Kaden Lord NP Primary Care Provide r Tian Taveras MD Primary Care Provider [phone] Encounter Details Date Type Department Care Team (Late st Contact Info) Description 08/22/2023 [email or web address] Message Enc [facility] Medical Group Family & Internal Medicine [address] [address] [facility] [...] Sex Assigned at Male 08/06/2024 3:05 PM ENVIRONMENTAL ENGINEERING MANAGER Legal Sex Male 3:29 PM ENVIRONMENTAL ENGINEERING MANAGER Gender Identity Male 08/06/2024 3:05 PM ENVIRONMENTAL ENGINEERING MANAGER Sexual Orientation Straight 08/06/2024 3: 05 PM ENVIRONMENTAL ENGINEERING MANAGER Occupation Industry Job Start Date Job [...] documented as of this encounter Care Teams Photogrammetric Engineer Relationship Specialty Start [place] [address] [address], [address] [place] [address] PCP - General Nurse Practitioner Family 12/09/22 08/22/23 [place] [address] [address], [address] [place] [address] PCP - General NURSE PRACTITIONER ADULT HEALTH 08/23/23 01/03/24 [place] [address] [address] [place] [address] PCP - General INTERNAL MEDICINE 01/04/24 Romulo Wynn MD [address] [address] Alsen Assigner CARDIOVASCULAR DISEASE 08/19/17 documented as of this encounter
[2025-05-06 09:04] LABS: Hematocrit 47.3 % (42.0-52.0); Hemoglobin 15.8 g/dL (14.0-18.0); Immature Granulocyte Percent A 0.3 % (0-0.5); Lymphocytes Absolute Auto 2.15 K/mm3 (0.9-3.2); Mean Corpuscular HGB Conc 33.4 g/dl (32-36); Mean Corpuscular Hemoglobin 31.5 pg (26-34); Mean Corpuscular Volume 94.2 fl (80-100); Nucleated Red Blood Cells Absolute Auto 0.000 K/mm3 (0.0-0.012); Nucleated Red Blood Cells Perc 0.0 % (0.0-0.2); Platelet Count Result 160 k/mm3 (150-375); Red Blood Count 5.02 M/mm3 (4.6-6.20); White Blood Count 8.8 K/mm3 (4.5-10.0)
[2025-05-06 09:15] LABS: INR 1.0; Prothrombin Time 13.6 Seconds (11.1-14.7)
[2025-05-06 09:16] LABS: Partial Thromboplastin Time 27.9 Seconds (22.3-36.8)
[2025-05-06 09:19] LABS: Alanine Aminotransferase 18 U/L (6-50); Albumin Level 4.5 g/dL (3.5-5.1); Alkaline Phosphatase 79 U/L (38-126); Anion Gap 8 mmol/L (4-12); Aspartate Amino Transferase 26 U/L (17-59); Bilirubin,Total 1.1 mg/dL (0.2-1.3); Blood Urea Nitrogen 8 mg/dL (9-20); Calcium 9.4 mg/dL (8.4-10.2); Carbon Dioxide 26 mmol/L (22-30); Chloride 107 mmol/L (98-107); Estimated CRCL calculation 104 ml/min; Estimated Glomerular Filt Rate > 60; Glucose 118 mg/dL (65-110); Lipase 54 U/L (23-300); Potassium 3.7 mmol/L (3.4-5.0); Sodium 141 mmol/L (137-145); Total Protein 7.8 g/dL (6.3-8.2)
--- NOTE | 2025-05-06 09:24 | ED_ITS ---
HPI - General Adult General Chief complaint: Chest Pain Stated complaint: chest pain Time Seen by Provider: 05/06/25 09:00 History of Present Illness HPI narrative: 59-year-old male present to the emergency department for evaluation for left- sided chest pain. Patient states that the chest pain is not worse with exertion but is worsened with movement. Patient denies any associated shortness of breath. Patient states he has had this pain intermittently over the course of the last few weeks but states worsened last night. Patient denies any cardiac history. Patient does have previous history of possible aortic aneurysm that was reported a few years ago. Related Data Allergies Allergy/AdvReac Type Severity Reaction Status Date / Time No Known Allergies Allergy Verified 05/06/25 08:47 Review of Systems 2 Review of Systems: All systems reviewed & are unremarkable except as noted in HPI and below PMFSH Past Medical History Medical History (Updated 05/06/25 @ 13:19 by Tyrone Jean Baptiste MD) Abnormal CT scan, colon History of sleep apnea Mixed hyperlipidemia Essential (primary) hypertension Family History Family History Mother Patient's mother is in good health Family history of pulmonary embolism Father Patient's father is in good health Social History Social History Smoking packs per day: 1.5 Smoking cigarettes per day: 30.0 Smoking status: Current every day smoker Tobacco type: cigarettes Alcohol intake: never Substance use: never Substance use type: does not use Living arrangements: with family Spiritual care concerns: No Exam 2 Narrative: APPEARANCE: Well appearing, no pain, no distress, well-nourished. HEAD: normocephalic, atraumatic. EYES: PERRLA/EOMI, conjunctivae clear. NOSE: Normal no drainage EARS:TMS clear with good light reflex. THROAT: Pharynx clear, no exudate. NECK: Supple. No adenopathy, no masses. RESPIRATORY: Airway patent, respirations nonlabored. Clear to auscultation bilaterally, no rales, rhonchi, wheezing. CARDIOVASCULAR: Regular rate and rhythm without murmurs rubs or gallops. ABDOMINAL: Soft, nontender, nondistended, normal bowel sounds MUSCULOSKELETAL: left-sided chest wall pain. NEURO: Alert. Cranial nerves II through XII intact. Good gait. Good coordination SKIN: Warm, dry. Normal Color PSYCHIATRIC: Normal affect/mood. Course Vital Signs Vital signs: Vital Signs Temperature 97.7 F 05/06/25 08:44 Pulse Rate 75 05/06/25 08:44 Respiratory Rate 16 05/06/25 08:44 Blood Pressure 144/82 H 05/06/25 08:44 Pulse Oximetry 99 05/06/25 08:44 Oxygen Delivery Room Air 05/06/25 08:44 Temperature 97.7 F 05/06/25 08:44 Pulse Rate 75 05/06/25 13:30 Respiratory Rate 18 05/06/25 13:30 Blood Pressure 145/72 H 05/06/25 13:30 Pulse Oximetry 98 05/06/25 13:30 Oxygen Delivery Room Air 05/06/25 08:44 Medical Decision Making MDM Narrative Medical decision making narrative: 59-year-old male presents emergency department for evaluation for left-sided chest wall pain. Patient is currently afebrile with no leukocytosis and hemoglobin of 15.8. Patient has INR of 1.0. Patient had negative serial troponins. Patient does report a prior history of an enlarged abdominal aorta. CTA was ordered to evaluate for aneurysm. CT showed Infrarenal abdominal aorta 3.2 cm, barely aneurysmal-per radiology. Patient's serial EKGs were or negative. No evidence of acute STEMI. Patient was updated the results of workup. Patient was encouraged close follow-up with his primary care physician for additional outpatient cardiac workup. All questions concerns were addressed. Symptoms may be secondary to muscular strain. No evidence of shingles. No evidence of ACS, pulmonary embolism, pneumonia Differential Diagnosis Differential Diagnosis: Pneumonia, aortic aneurysm, aortic dissection, ACS, pneumonia, pneumothorax Vital Signs Vital Signs: Vital Signs Temperature 97.7 F 05/06/25 08:44 Pulse Rate 75 05/06/25 08:44 Respiratory Rate 16 05/06/25 08:44 Blood Pressure 144/82 H 05/06/25 08:44 Pulse Oximetry 99 05/06/25 08:44 Oxygen Delivery Room Air 05/06/25 08:44 Temperature 97.7 F 05/06/25 08:44 Pulse Rate 75 05/06/25 13:30 Respiratory Rate 18 05/06/25 13:30 Blood Pressure 145/72 H 05/06/25 13:30 Pulse Oximetry 98 11/24/25 13:30 Oxygen Delivery Room Air 05/06/25 08:44 Lab Data Lab results reviewed: Yes I reviewed the patient's lab results. 05/06/25 08:50 05/06/25 08:50 Labs: Lab Results 05/06/25 05/06/25 Range/Units 08:50 12:00 WBC 8.8 (4.5-10.0) K/mm3 RBC 5.02 (4.6-6.20) M/mm3 Hgb 15.8 (14.0-18.0) g/dL Hct 47.3 (42.0-52.0) % MCV 94.2 (80-100) fl MCH 31.5 (26-34) pg MCHC 33.4 (32-36) g/dl RDW 13.2 (11.5-14.5) % Plt Count 160 (150-375) k/mm3 MPV 10.8 H (7.4-10.4) fl Immature Gran % (Auto) 0.3 (0-0.5) % Neut % (Auto) 69.0 (45.5-73.1) % Lymph % (Auto) 24.5 (18.3-44.2) % [place] % (Auto) 4.6 (2.6-8.5) % Eos % (Auto) 1.3 (0-4.4) % Baso % (Auto) 0.3 (0.2-1.2) % Lymph # (Auto) 2.15 (0.9-3.2) K/mm3 [place] # (Auto) 0.4 (0.1-0.6) K/mm3 Eos # (Auto) 0.1 (0-0.3) K/mm3 Baso # (Auto) 0.0 (0.0-0.1) K/mm3 Abs Immat Gran (auto) 0.03 (0.00-0.031) K/mm3 Absolute Neuts (auto) 6.1 (1.3-6.7) K/mm3 Absolute Nucleated RBC 0.000 (0.0-0.012) K/mm3 Nucleated RBC % 0.0 (0.0-0.2) % PT 13.6 (11.1-14.7) Seconds INR 1.0 APTT 27.9 (22.3-36.8) Seconds Sodium 141 (137-145) mmol/L Potassium 3.7 (3.4-5.0) mmol/L Chloride 107 (98-107) mmol/L Carbon Dioxide 26 (22-30) mmol/L Anion Gap 8 (4-12) mmol/L BUN 8 L D (9-20) mg/dL Creatinine 0.84 (0.7-1.3) mg/dL Estim Creat Clear Calc 104 ml/min Estimated GFR > 60 (59 - ) Glucose 118 H (65-110) mg/dL Calcium 9.4 (8.4-10.2) mg/dL Total Bilirubin 1.1 (0.2-1.3) mg/dL AST 26 (17-59) U/L ALT 18 (6-50) U/L Alkaline Phosphatase 79 (38-126) U/L Troponin I < 0.012 < 0.012 (0.000-0.034) ng/mL Total Protein 7.8 (6.3-8.2) g/dL Albumin 4.5 (3.5-5.1) g/dL Lipase 54 (23-300) U/L Imaging Data Attestation: I personally reviewed and interpreted this imaging study as follows: My impression: Chest x-ray: No acute cardiopulmonary abnormality Radiologist's impression: Impressions Chest X-Ray 05/06/25 09:08 Impression: No acute cardiopulmonary abnormality. Chest/Abdomen/Pelvis CTA 05/06/25 10:38 IMPRESSION: CHEST- 1. No acute cardiopulmonary findings. ABDOMEN/PELVIS- 1. No acute abdominopelvic findings. 2. Sigmoid colon wall thickening likely chronic diverticular disease but recommend colonoscopy to exclude lesion. 3. Infrarenal abdominal aorta 3.2 cm, barely aneurysmal. Recommend surveillance ultrasound or CT in 3 years. Discharge Plan Discharge Clinical Impression: Left-sided chest pain Patient Disposition: Home Condition: Stable Instructions: Antibiotic Form Additional Instructions: Have close follow-up with your primary care physician for additional outpatient cardiac testing. If you have any worsening symptoms then please call or return to the emergency department. Patient Language: Vincentian Prescriptions: No Action cyclobenzaprine 10 mg tablet 10 mg PO TID PRN (Reason: muscle spasm) Qty: 20 0RF lorazepam [Ativan] 0.5 mg tablet 0.5 mg PO BID PRN (Reason: anxiety) Qty: 7 0RF cyclobenzaprine 10 mg tablet 10 mg PO BID PRN (Reason: muscle spasm) Qty: 14 0RF methylprednisolone [Medrol (Clint)] 4 mg tablets,dose pack See Rx Instructions .ROUTE .COMPLEX Qty: 21 0RF Rx Instructions: for 6 days amlodipine-benazepril 5-20 mg capsule 2 cap PO DAILY Qty: 90 1RF atorvastatin 40 mg tablet 40 mg PO DAILY Qty: 90 1RF hydrochlorothiazide 12.5 mg tablet 12.5 mg PO DAILY Qty: 90 1RF Follow-up/Referrals: Scooby Zambrano MD [Primary Care Provider, Family Practice] Quality HEART score for chest pain patients History: slightly suspicious ECG: normal Age: > 45 and < 65 years Risk factors: 1 or 2 risk factors Troponin: < or = to 1x normal limit Heart score: 2
[2025-05-06 09:29] LABS: Troponin I < 0.012 ng/mL (0.000-0.034)
--- OUTSIDE RECORDS SUMMARY | 2025-05-06 10:13 | XMS_ITS | Encounter Summary ---
Author Organization [facility] Address [address] [place] [address] Care Team Providers Care Chief Controller Name Role Phone Romulo Wynn MD Unavailable [phone] Dianna Blackman NP Primary Care Provider [phone] Kaden Lord NP Primary Care Provide r Tian Taveras MD Primary Care Provider [phone] Encounter Details Date Type Department Care Team (Late st Contact Info) Description 08/22/2023 TriplePulse Message Enc [facility] Medical Group Family & Internal Medicine [address] [address] [facility] [employer] Provider appointment Social History Tobacco Use Types [...] Sex Assigned at Male 08/06/2024 3:05 PM PHOTO MANAGER Legal Sex Male 3:29 PM PHOTO MANAGER Gender Identity Male 08/06/2024 3:05 PM PHOTO MANAGER Sexual Orientation Straight 08/06/2024 3: 05 PM PHOTO MANAGER Occupation Industry Job Start Date Job [...] documented as of this encounter Care Teams Chief Controller Relationship Specialty Start [place] [address] [address], [address] [place] [address] PCP - General Nurse Practitioner Family 12/09/22 08/22/23 [place] [address] [address], [address] [place] [address] PCP - General NURSE PRACTITIONER ADULT HEALTH 08/23/23 01/03/24 [place] [address] [address] [place] [address] PCP - General INTERNAL MEDICINE 01/04/24 Romulo Wynn MD [address] [address] [place] Quality Control Representative CARDIOVASCULAR DISEASE 08/19/17 documented as of this encounter
--- OUTSIDE RECORDS SUMMARY | 2025-05-06 10:13 | XMS_ITS | Clinical Summary ---
Author Organization [facility] Address [facility] [place] [address] Care Team Providers Care Washer And Capper Machine Operator Name Role Phone Romulo Wynn MD Unavailable [phone] Tian Taveras MD Primary Care Provider [phone] Allergies No known active allergies Medications hydrOXYzine [...] (05/20/2022): Added automatically from request for surgery [id number] Diarrhea, unspecified type 05/20/2022 0 01/12/2023 Overview (05/20/2022): Added automatically from request for surgery [id number] Left ear pain 09/23/2021 01/12/2023 Encounter for screening for malignant neoplasm of colon 03/26/2019 01/12/2023 Overview (03/26/2019): Added automatically from request for surgery [id number] BMI 40.0-44.9, adult 12/06/2018 023 Acute recurrent maxillary sinusitis 12/06/2018 01/12/2023 Screening for colon cancer 04/04/2018 0 06/30/2018 Neck pain, acute 11/15/2017 06/30/2018 Snoring 08/09/2017 06/30/2018 Acute bronchitis, unspecified organism 05/31/2017 06/30/2018 Chest discomfort 06/30/2018 Encounters Date Type Department Care Team Description 03/26/2025 Rosa Message Enc [facility] Medical Group Family & Internal Medicine [facility] [id number] [place] [address] Rosa, [facility] Provider medication refill / appointment from Last [...] Sex Assigned at Male 08/06/2024 3:05 PM HOTEL FRONT OFFICE MANAGER Legal Sex Male 3:29 PM HOTEL FRONT OFFICE MANAGER Gender Identity Male 08/06/2024 3:05 PM HOTEL FRONT OFFICE MANAGER Sexual Orientation Straight 08/06/2024 3: 05 PM HOTEL FRONT OFFICE MANAGER 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 Not on file Last Filed Vital Signs Vital Sign Reading Time Taken Comments Blood Pressure 132/82 08/06/2024 2:59 PM HOTEL FRONT OFFICE MANAGER Pulse 74 08/06/2024 2:59 PM HOTEL FRONT OFFICE MANAGER Temperature 36.6 C (97.9 F) 08/06/2024 2:59 PM HOTEL FRONT OFFICE MANAGER Respiratory Rate 16 08/06/2024 2:59 PM HOTEL FRONT OFFICE MANAGER Oxygen Saturation 97% 08/06/2024 2:59 PM HOTEL FRONT OFFICE MANAGER Inhaled Oxygen Concentration - - Weight 117 kg (258 lb) 08/06/2024 2:59 PM HOTEL FRONT OFFICE MANAGER Height 180.3 cm (5' 11) 08/06/2024 2:59 PM HOTEL FRONT OFFICE MANAGER Body Mass Index 35.98 08/06/2024 2:59 PM HOTEL FRONT OFFICE MANAGER Plan of Treatment Health Maintenance Due [...] Vaccine: 50+ Years Completed 01/12/2023 PHQ-2 (Physician [facility]) Completed 08/06/2024 Hepatitis A Vaccines Aged Out [...] complete this topic Insurance [employer] Care Teams Washer And Capper Machine Operator Relationship Specialty [place] [address] [address] PCP - General INTERNAL MEDICINE 01/04/24 Romulo Wynn MD [facility] [address] [place] [address] [place] B[employer] CARDIOVASCULAR DISEASE 08/19/17
--- OUTSIDE RECORDS SUMMARY | 2025-05-06 10:13 | XMS_ITS | Encounter Summary ---
Author Organization [facility] Address [address] [place] [address] Care Team Providers Care Cma Or Lpn Name Role Phone Romulo Wynn MD Unavailable [phone] Tian Taveras MD Primary Care Provider [phone] Encounter Details Date Type Department Care Team (Late st Contact Info) Description 03/26/2025 Think Sky Message [facility] Medical Group Family & Internal Medicine [address] [address] [place] Provider medication refill / appointment Social History [...] Sex Assigned at Male 08/06/2024 3:05 PM TRAVEL WRITER Legal Sex Male 3:29 PM TRAVEL WRITER Gender Identity Male 08/06/2024 3:05 PM TRAVEL WRITER Sexual Orientation Straight 08/06/2024 3: 05 PM TRAVEL WRITER 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 [facility] [address] [place] [address] [place] Verifying Specialist CARDIOVASCULAR DISEASE 08/19/17 documented as of this encounter
--- OUTSIDE RECORDS SUMMARY | 2025-05-06 10:13 | XMS_ITS | Clinical Summary ---
Author Organization [facility] Address [address] [place] [address] Care Team Providers Care Auto Battery Builder Name Role Phone Unavailable Primary Care Provider Unavailabl e Source Comments [facility],non-owned Affiliates and Associated Physician Practices is amultiple site organization consisting of ambulatory clinics and hospital sitesin [place], [place], [place] and [place]. This disclosure is being madepursuant to the Care Everywhere program and may not contain all information available regarding this patient. Last updated 18.[facility] Allergies No known active allergies Medications * [...] on file Legal Sex Male 11:43 AM APARTMENT HOUSE MANAGER Gender Identity Not on file Sexual Orientation Not on file Last Filed Vital Signs Vital Sign Reading Time Taken Comments Blood Pressure 136/88 04/20/2017 2:09 PM APARTMENT HOUSE MANAGER Pulse 85 04/20/2017 2:09 PM APARTMENT HOUSE MANAGER Temperature 36.9 C (98.4 F) 04/20/2017 2:09 PM APARTMENT HOUSE MANAGER Respiratory Rate 16 04/20/2017 2:09 PM APARTMENT HOUSE MANAGER Oxygen Saturation 97% 04/20/2017 2:09 PM APARTMENT HOUSE MANAGER Inhaled Oxygen Concentration - - Weight 131.5 kg (290 lb) 04/20/2017 2:09 PM APARTMENT HOUSE MANAGER Height 182.9 cm (6') 04/20/2017 2:09 PM APARTMENT HOUSE MANAGER Body Mass Index 39.33 04/20/2017 2:09 PM APARTMENT HOUSE MANAGER Plan of Treatment Health Maintenance Due [...] patient's age to complete [place] [address] [facility] SELF PAY NO INSURANCE Member Subscriber Plan / Payer (Ef fective for All Dates) Name:Héctor Head Member ID:Not on file Relation to Subscriber:Not on file Name:HÉCTOR HEAD Subscriber ID:Not on file (Home) Address: [address] [place] [address] [place] [address] Payer ID:Not on file Group ID:Not on file Type:Self Pay Address: [place], [place]
--- OUTSIDE RECORDS SUMMARY | 2025-05-06 10:13 | XMS_ITS | Encounter Summary ---
Author Organization [facility] Address [address] [place] [address] Care Team Providers Care Plate Worker Name Role Phone SeverianoFracisco nugentsalma DUPREE Primary Care Provider UnaRomulo Glover MD Unavailable [phone] Shilpa Savage NP Primary Care Provider UnavaNatasha Coleman Primary Care Provider [phone] New Referring, Provider Primary Care Provider Un available Natasha Arreola Primary Care Provider [phone] Dianna Blackman NP Primary Care Provider [phone] Kaden Lord NP Primary Care Provide r Tian Taveras MD Primary Care Provider [phone] Encounter Details Date Type Department Care Team (Late st Contact Info) Description 08/26/2017 Abstract [facility] at [address] [address] Nga Cruz [place] Social History Tobacco Use Types Packs/Day Years Used Date Smoking Tobacco: Every Day Cigarettes 1 36.9 Started: 1988 Alcohol Use Standard Drinks/Week Comments No 0 (1 standard drink = 0.6 oz pur e alcohol) Sex and Gender Information Value Date Recorded Sex Assigned at Male 08/06/2024 3:05 PM IMMIGRATION LAWYER Legal Sex Male 3:29 PM IMMIGRATION LAWYER Gender Identity Male 08/06/2024 3:05 PM IMMIGRATION LAWYER Sexual Orientation Straight 08/06/2024 3: 05 PM IMMIGRATION LAWYER Occupation Industry Job Start Date Job End [...] Final Result * LIPID PANEL (06/09/2017) Pathologist [facility] CHOLESTEROL 236 HDL 38 TRIGLYCERIDES 140 LDL [...] on filedocumented in this encounter Care Teams Plate Worker Relationship Specialty Start Date End Date Moriah العلي APNP PCP - General HEART SPECIALIST 08/11/17 06/28/18 Shilpa Savage NP [address] [address] PCP - General Nurse Practitioner Family 06/29/18 07/25/19 [place] [address] [place] [address] PCP - General PHYSICIAN ORCHID TRANSPLANTER 07/26/19 09/30/19 [facility], Provider [address] [place] [address] PCP - General UNKNOWN PHYSICIAN SPECIALTY 10/01/19 10/29/19 [place] [address] [place] [address] PCP - General PHYSICIAN ORCHID TRANSPLANTER 10/30/19 12/08/22 [place] [address] [facility], [address] [address] PCP - General Nurse Practitioner Family 12/09/22 08/22/23 Kaden Lord, [place] [address] [address], [address] [place] [address] PCP - General NURSE PRACTITIONER ADULT HEALTH 08/23/23 01/03/24 [place] [address] [address] PCP - General INTERNAL MEDICINE 01/04/24 Romulo Wynn MD [facility]. [address] [address] [place] Environmental Advisor CARDIOVASCULAR DISEASE 08/19/17 documented as of this encounter
--- OUTSIDE RECORDS SUMMARY | 2025-05-06 10:13 | XMS_ITS | Clinical Summary ---
Author Organization [facility] [address] [place] Address [address] [place] [address] Care Team Providers Care Transit Mixer Driver Name Role Phone Unknown, Notinfile Primary Care [...] Description 03/26/2025 2:30 PM CDT Office Visit [facility] Medical [facility] at [address] [address] Cyn Singh NP Allergic conjunctivitis [...] age to complete this topic Care Teams Transit Mixer Driver Relationship Specialty Start Date End Date Unknown, Notinfile PCP - General 03/26/25
--- NOTE | 2025-05-06 11:43 | ECG_ITS ---
Test Date: 2025-05-06 11:49:34 Measurements Intervals [place] Rate: 60 P: 67 CA: 179 QRS: 57 QRSD: 91 T: 46 QT: 437 QTc: 437 Interpretive Statements SINUS RHYTHM POSSIBLE LEFT ATRIAL ENLARGEMENT [-0.1mV P-WAVE IN V1/V2] ABNORMAL ECG Compared to ECG 05/06/2025 08:45:59 Myocardial infarct finding no longer present Electronically Signed On 05-06-2025 13:57:02 ORTHOPEDIC RN by Ritchie Blount M.D.
[2025-05-06 12:56] LABS: Troponin I < 0.012 ng/mL (0.000-0.034)
== END 2025-05-06 13:49 | disposition home or self-care (01) ==
PROVIDERS: Emergency Provider Emergency Medicine; PCP Family Medicine
DX: R07.9 Chest pain, unspecified (principal); I10 Essential (primary) hypertension; E78.2 Mixed hyperlipidemia; G47.30 Sleep apnea, unspecified; F17.210 Nicotine dependence, cigarettes, uncomplicated; R93.3 Abnormal findings on diagnostic imaging of other parts of digestive tract; R93.5 Abnormal findings on diagnostic imaging of other abdominal regions, including retroperitoneum; R94.31 Abnormal electrocardiogram [ECG] [EKG]
CPT/HCPCS: 36415; 71046; 71275; 74174; 80053; 83690; 84484; 85025; 85610; 85730; 93005; 99284; Q9967